=== PATIENT | female | born 1965 ===

== ENCOUNTER 2017-07-08 15:21 | Inpatient (IN) | payer OTHER, MEDICARE ==
[2017-07-08] MEDS ORDERED: Sodium Chloride 0.9% 1,000 ML IV ONE ×5 (15:30→18:14)
[2017-07-08] MEDS ORDERED: Sodium Chloride 0.9% 10 ML Syringe FLUSH PRN ×2 (15:30→15:38)
[2017-07-08] MEDS ORDERED: Ondansetron 4 MG/2 ML SDV IVPUSH ONE (15:38)
--- NOTE | 2017-07-08 15:49 | EDM.PDOC ---
<Kristie Lai - Last Filed: 07/09/17 02:52> ED HPI GENERAL MEDICAL PROBLEM - General Chief Complaint: Diabetic Complaint Stated Complaint: [facility] Time Seen by Provider: 07/08/17 15:29 Source of Information: Reports: Patient, EMS, Significant Other History Limitations: Reports: No Limitations - History of Present Illness INITIAL COMMENTS - FREE TEXT/NARRATIVE: 51-year-old female arrives via [place] [facility] service for evaluation and treatment of hyperglycemia. Patient is visiting [place] from [place]. She was in [facility] and April in [place]. Reportedly she has been taking her medications as prescribed. She started new diet about 5 days ago, she is on a "ketotic" diet. States that this is the only recent change. She does not note any fevers, cough etc. She is currently complaining of abdominal pain in epigastric area, nausea and vomiting. She is also complaining of being dry feeling dehydrated. She had 10 units of regular insulin around 11 AM. Per her significant other's report her blood sugar was around 396. EMS report shows a blood sugar of 430. Patient has been a diabetic for the last 15 years. primary care provider is in [place]. Upper Abdomen Pain Score (Numeric/FACES): 5 - Related Data Allergies Allergy/AdvReac Type Severity Reaction Status Date / Time No Known Allergies Allergy Verified 07/08/17 15:27 Home Meds: Home Meds Dapagliflozin Propanediol [Farxiga] 10 mg PO QAM 07/08/17 [History] Insulin Aspart [NovoLOG] 0 unit SQ WITHMEALSANDBED 07/08/17 [History] Insulin Glargine,Hum.Rec.Anlog [Toujeo Solostar] 30 unit SQ DAILY 07/08/17 [ History] Lisinopril 10 mg PO QAM 07/08/17 [History] Saxagliptin HCl/Metformin HCl [Kombiglyze XR 2.5-1,000 MG] 1 each PO QAM [History] atorvaSTATin [Lipitor] 20 mg PO QAM 07/08/17 [History] Past Medical History [employer] History: Reports: Musculoskeletal History: Reports: Other (See Below) Other Musculoskeletal History: broken leg in past Neurological History: Reports: Neuropathy, Diabetic Endocrine/Metabolic History: Reports: Diabetes, Type I - Past Surgical History Female Surgical History: Reports: Hysterectomy Social & Family History - Tobacco Use Smoking Status *Q: Current Every Day Smoker Years of Tobacco use: 15 Packs/Tins Daily: 0.5 - Caffeine Use Caffeine Use: Reports: Coffee - Recreational Drug Use Recreational Drug Use: No ED ROS GENERAL - Review of Systems Review Of Systems: See Below Constitutional: Denies: Fever Respiratory: Denies: Cough Endocrine: Reports: High Glucose, Polydypsia GI/Abdominal: Reports: Abdominal Pain, Nausea, Vomiting ED EXAM GENERAL NO PERIP PULSE - Physical Exam Exam: See Below Exam Limited By: No Limitations General Appearance: WD/WN, Lethargic, Moderate Distress Eye Exam: Bilateral Eye: Normal Inspection Ears: Normal External Exam Nose: Normal Inspection Throat/Mouth: Normal Oropharynx, Normal Voice, No Airway Compromise, Other (dry mucus membranes) Respiratory/Chest: No Respiratory Distress, Lungs Clear, Normal Breath Sounds Cardiovascular: Normal Peripheral Pulses, No Murmur, Tachycardia GI/Abdominal: Normal Bowel Sounds, Tender (epigastric area ). No: Distended, Guarding Neurological: Alert, Oriented, Normal Cognition Psychiatric: Normal Affect, Normal Mood Skin Exam: Warm, Normal Color, Diaphoretic Course - Vital Signs Last Recorded V/S: Last Vital Signs Temp 37.0 C 07/10/17 16:00 Pulse 96 07/10/17 04:00 Resp 16 07/10/17 16:00 BP 113/69 07/10/17 16:00 Pulse Ox 100 07/10/17 16:00 - Orders/Labs/Meds Orders: Medication Orders Acetaminophen (Tylenol) 650 mg PO Q6H PRN PRN Reason: Pain/Fever Last Admin: 07/09/17 17:47 Dose: 650 mg Famotidine (Pepcid) 20 mg IVPUSH BID [facility] Last Admin: 07/10/17 08:10 Dose: 20 mg Admin: 07/09/17 20:25 Dose: 20 mg Admin: 07/09/17 11:23 Dose: 20 mg Hydralazine HCl (Apresoline) 20 mg IVPUSH Q6H PRN PRN Reason: Hypertension Potassium Chloride 10 meq/ (Premix) 100 mls @ 100 mls/hr IV ASDIRECTED [facility] Last Infusion: 07/10/17 11:58 Dose: 75 mls/hr Admin: 07/10/17 11:47 Dose: 100 mls/hr Infusion: 07/08/17 18:25 Dose: 100 mls/hr Admin: 07/08/17 17:25 Dose: 100 mls/hr Azithromycin 500 mg/ Sodium (Chloride) 250 mls @ 250 mls/hr IV Q24H RAMIRO Last Admin: 07/10/17 18:14 Dose: 250 mls/hr Infusion: 07/09/17 19:50 Dose: 250 mls/hr Admin: 07/09/17 18:50 Dose: 250 mls/hr Infusion: 07/08/17 21:20 Dose: 250 mls/hr Admin: 07/08/17 20:20 Dose: 250 mls/hr Insulin Human Regular 100 unit (/ Sodium Chloride) 100 mls @ 2.5 mls/hr IV TITRATE RAMIRO; 2.5 UNIT/HR PRN Reason: Protocol Last Titration: 07/10/17 18:09 Dose: 0 unit/hr, 0 mls/hr Titration: 07/10/17 12:03 Dose: 2.5 unit/hr, 2.5 mls/hr Titration: 07/10/17 10:14 Dose: 3 unit/hr, 3 mls/hr Titration: 07/10/17 08:18 Dose: 2.5 unit/hr, 2.5 mls/hr Titration: 07/10/17 06:44 Dose: 1.5 unit/hr, 1.5 mls/hr Titration: 07/10/17 05:53 Dose: 2 unit/hr, 2 mls/hr Titration: 07/10/17 04:01 Dose: 1.5 unit/hr, 1.5 mls/hr Titration: 07/10/17 00:57 Dose: 2 unit/hr, 2 mls/hr Titration: 07/10/17 00:14 Dose: 3 unit/hr, 3 mls/hr Admin: 07/09/17 19:04 Dose: 2 unit/hr, 2 mls/hr Titration: 07/09/17 19:04 Dose: 2 unit/hr, 2 mls/hr Titration: 07/09/17 13:17 Dose: 2 unit/hr, 2 mls/hr Titration: 07/09/17 12:11 Dose: 1.5 unit/hr, 1.5 mls/hr Titration: 07/09/17 08:16 Dose: 2 unit/hr, 2 mls/hr Titration: 07/09/17 06:58 Dose: 2.5 unit/hr, 2.5 mls/hr Titration: 07/09/17 06:27 Dose: 3 unit/hr, 3 mls/hr Titration: 07/09/17 03:09 Dose: 2.5 unit/hr, 2.5 mls/hr Titration: 07/09/17 00:03 Dose: 3 unit/hr, 3 mls/hr Titration: 07/08/17 23:35 Dose: 2.5 unit/hr, 2.5 mls/hr Titration: 07/08/17 23:31 Dose: 3 unit/hr, 3 mls/hr Admin: 07/08/17 22:38 Dose: 2.5 unit/hr, 2.5 mls/hr Potassium Chloride 20 meq/ (Dextrose/Water) 1,010 mls @ 150 mls/hr IV Q7H [facility] Last Infusion: 07/10/17 18:09 Dose: 0 mls/hr Admin: 07/10/17 14:59 Dose: 150 mls/hr Infusion: 07/10/17 14:51 Dose: 150 mls/hr Admin: 07/10/17 08:07 Dose: 150 mls/hr Infusion: 07/10/17 07:56 Dose: 150 mls/hr Admin: 07/10/17 01:12 Dose: 150 mls/hr Infusion: 07/10/17 01:12 Dose: 150 mls/hr Admin: 07/09/17 19:06 Dose: 150 mls/hr Ceftriaxone Sodium 2 gm/ (Sodium Chloride) 100 mls @ 200 mls/hr IV Q24H [facility] Insulin Aspart (Novolog) 0 unit SUBCUT QIDACANDBED RAMIRO PRN Reason: Protocol Last Admin: 07/10/17 18:06 Dose: 6 units Ondansetron HCl (Zofran) 4 mg IVPUSH Q8H PRN PRN Reason: Nausea/Vomiting Last Admin: 07/09/17 05:39 Dose: 4 mg Admin: 07/08/17 20:55 Dose: 4 mg Potassium Chloride (Klor-Con M20) 40 meq PO BID [facility] Stop: 07/11/17 09:01 Last Admin: 07/10/17 08:10 Dose: Not Given Admin: 07/09/17 17:48 Dose: 40 meq Scopolamine (Scopolamine) 1 each TRDERM Q72H RAMIRO Last Admin: 07/09/17 11:21 Dose: 1 each Sodium Chloride (Saline Flush) 10 ml FLUSH ASDIRECTED PRN PRN Reason: Keep Vein Open Last Admin: 07/08/17 16:12 Dose: 10 ml Sodium Chloride (Saline Flush) 10 ml FLUSH ASDIRECTED PRN PRN Reason: Keep Vein Open Last Admin: 07/08/17 16:13 Dose: 10 ml Labs: Laboratory Tests 07/08/17 07/08/17 07/08/17 Range/Units 15:30 15:30 15:30 WBC 29.95 H (3.98-10.04) K/mm3 RBC 4.28 (3.98-5.22) M/mm3 Hgb 12.4 (11.2-15.7) gm/L Hct 39.1 (34.1-44.9) % MCV 91.4 (79.4-94.8) fl MCH 29.0 (25.6-32.2) pg MCHC 31.7 L (32.2-35.5) g/dl RDW Std Deviation 42.9 (36.4-46.3) fL Plt Count 450 H (182-369) K/mm3 MPV 10.2 (9.4-12.3) fl Neutrophils % (Manual) 87 H (40-60) % Band Neutrophils % 0 (0-10) % Lymphocytes % (Manual) 10 L (20-40) % Atypical Lymphs % 0 % Monocytes % (Manual) 3 (2-10) % Eosinophils % (Manual) 0 L (0.7-5.8) % Basophils % (Manual) 0 L (0.1-1.2) Toxic Granulation 1+ slight Platelet Estimate Increased Plt Morphology Comment Normal Poikilocytosis 1+ slight Pavithra Cells 1+ slight RBC Morph Comment Not Reportable Puncture Site ABG pH (7.35-7.45) ABG pCO2 (35.0-45.0) mmHg ABG pO2 (80.0-100.0) mmHg ABG HCO3 (22.0-26.0) meq/L ABG O2 Saturation (96.0-97.0) % ABG Base Excess (-2-2.0) Rubin Test O2 Delivery Device FiO2 (21.00-100.00) % Sodium 142 (136-145) mEq/L Potassium 4.9 (3.5-5.1) mEq/L Chloride 98 (98-107) mEq/L Carbon Dioxide 5 L* (21-32) mEq/L Anion Gap 43.9 H (5-15) BUN 37 H (7-18) mg/dL Creatinine 1.9 H (0.55-1.02) mg/dL Est Cr Clr Drug Dosing 34.83 mL/min Estimated GFR (MDRD) 28 (>60) mL/min BUN/Creatinine Ratio 19.5 H (14-18) Glucose 462 H (74-106) mg/dL Hemoglobin A1c (4.50-6.20) % Serum Osmolality 346 H (280-300) mosm/kg Lactic Acid 2.8 H (0.4-2.0) mmol/L Calcium 8.9 (8.5-10.1) mg/dL Phosphorus 9.6 H (2.6-4.7) mg/dL Magnesium 2.4 (1.8-2.4) mg/dl Total Bilirubin 0.5 (0.2-1.0) mg/dL AST 36 (15-37) U/L ALT 77 H (14-59) U/L Alkaline Phosphatase 102 (46-116) U/L C-Reactive Protein (<1.0) mg/dL Total Protein 7.5 (6.4-8.2) g/dl Albumin 4.0 (3.4-5.0) g/dl Globulin 3.5 gm/dL Albumin/Globulin Ratio 1.1 (1-2) Lipase (73-393) U/L Urine Color (Yellow) Urine Appearance (Clear) Urine pH (5.0-8.0) Ur Specific [place] (1.005-1.030) Urine Protein (Negative) Urine Glucose (UA) (Negative) Urine Ketones (Negative) Urine Occult Blood (Negative) Urine Nitrite (Negative) Urine Bilirubin (Negative) Urine Urobilinogen (0.2-1.0) Ur Leukocyte Esterase (Negative) Urine RBC (0-5) /hpf Urine WBC (0-5) /hpf Ur Epithelial Cells (0-5) /hpf Amorphous Sediment (NOT SEEN) /hpf Urine Bacteria (FEW) /hpf Urine Mucus (FEW) /hpf Urine Opiates Screen (NEGATIVE) Ur Buprenorphine Scrn (NEGATIVE) Ur Oxycodone Screen (NEGATIVE) Urine Methadone Screen (NEGATIVE) Ur Propoxyphene Screen (NEGATIVE) Ur Barbiturates Screen (NEGATIVE) Ur Tricyclics Screen (NEGATIVE) Ur Phencyclidine Scrn (NEGATIVE) Ur Amphetamine Screen (NEGATIVE) U Methamphetamines Scrn (NEGATIVE) U Benzodiazepines Scrn (NEGATIVE) U Cocaine Metab Screen (NEGATIVE) U Marijuana (THC) Screen (NEGATIVE) Ketones (0.0-0.3) mM 07/08/17 07/08/17 07/08/17 Range/Units 15:30 15:30 15:30 WBC (3.98-10.04) K/mm3 RBC (3.98-5.22) M/mm3 Hgb (11.2-15.7) gm/L Hct (34.1-44.9) % MCV (79.4-94.8) fl MCH (25.6-32.2) pg MCHC (32.2-35.5) g/dl RDW Std Deviation (36.4-46.3) fL Plt Count (182-369) K/mm3 MPV (9.4-12.3) fl Neutrophils % (Manual) (40-60) % Band Neutrophils % (0-10) % Lymphocytes % (Manual) (20-40) % Atypical Lymphs % % Monocytes % (Manual) (2-10) % Eosinophils % (Manual) (0.7-5.8) % Basophils % (Manual) (0.1-1.2) Toxic Granulation Platelet Estimate Plt Morphology Comment Poikilocytosis Pavithra Cells RBC Morph Comment Puncture Site ABG pH (7.35-7.45) ABG pCO2 (35.0-45.0) mmHg ABG pO2 (80.0-100.0) mmHg ABG HCO3 (22.0-26.0) meq/L ABG O2 Saturation (96.0-97.0) % ABG Base Excess (-2-2.0) Rubin Test O2 Delivery Device FiO2 (21.00-100.00) % Sodium (136-145) mEq/L Potassium (3.5-5.1) mEq/L Chloride (98-107) mEq/L Carbon Dioxide (21-32) mEq/L Anion Gap (5-15) BUN (7-18) mg/dL Creatinine (0.55-1.02) mg/dL Est Cr Clr Drug Dosing mL/min Estimated GFR (MDRD) (>60) mL/min BUN/Creatinine Ratio (14-18) Glucose (74-106) mg/dL Hemoglobin A1c (4.50-6.20) % Serum Osmolality (280-300) mosm/kg Lactic Acid (0.4-2.0) mmol/L Calcium (8.5-10.1) mg/dL Phosphorus (2.6-4.7) mg/dL Magnesium (1.8-2.4) mg/dl Total Bilirubin (0.2-1.0) mg/dL AST (15-37) U/L ALT (14-59) U/L Alkaline Phosphatase (46-116) U/L C-Reactive Protein 0.2 (<1.0) mg/dL Total Protein (6.4-8.2) g/dl Albumin (3.4-5.0) g/dl Globulin gm/dL Albumin/Globulin Ratio (1-2) Lipase 1355 H (73-393) U/L Urine Color (Yellow) Urine Appearance (Clear) Urine pH (5.0-8.0) Ur Specific [place] (1.005-1.030) Urine Protein (Negative) Urine Glucose (UA) (Negative) Urine Ketones (Negative) Urine Occult Blood (Negative) Urine Nitrite (Negative) Urine Bilirubin (Negative) Urine Urobilinogen (0.2-1.0) Ur Leukocyte Esterase (Negative) Urine RBC (0-5) /hpf Urine WBC (0-5) /hpf Ur Epithelial Cells (0-5) /hpf Amorphous Sediment (NOT SEEN) /hpf Urine Bacteria (FEW) /hpf Urine Mucus (FEW) /hpf Urine Opiates Screen (NEGATIVE) Ur Buprenorphine Scrn (NEGATIVE) Ur Oxycodone Screen (NEGATIVE) Urine Methadone Screen (NEGATIVE) Ur Propoxyphene Screen (NEGATIVE) Ur Barbiturates Screen (NEGATIVE) Ur Tricyclics Screen (NEGATIVE) Ur Phencyclidine Scrn (NEGATIVE) Ur Amphetamine Screen (NEGATIVE) U Methamphetamines Scrn (NEGATIVE) U Benzodiazepines Scrn (NEGATIVE) U Cocaine Metab Screen (NEGATIVE) U Marijuana (THC) Screen (NEGATIVE) Ketones 15.67 (0.0-0.3) mM 07/08/17 07/08/17 07/08/17 Range/Units 15:34 15:50 16:50 WBC (3.98-10.04) K/mm3 RBC (3.98-5.22) M/mm3 Hgb (11.2-15.7) gm/L Hct (34.1-44.9) % MCV (79.4-94.8) fl MCH (25.6-32.2) pg MCHC (32.2-35.5) g/dl RDW Std Deviation (36.4-46.3) fL Plt Count (182-369) K/mm3 MPV (9.4-12.3) fl Neutrophils % (Manual) (40-60) % Band Neutrophils % (0-10) % Lymphocytes % (Manual) (20-40) % Atypical Lymphs % % Monocytes % (Manual) (2-10) % Eosinophils % (Manual) (0.7-5.8) % Basophils % (Manual) (0.1-1.2) Toxic Granulation Platelet Estimate Plt Morphology Comment Poikilocytosis Ord Cells RBC Morph Comment Puncture Site Rt radial ABG pH 7.02 L* (7.35-7.45) ABG pCO2 13.5 L* (35.0-45.0) mmHg ABG pO2 127.0 H (80.0-100.0) mmHg ABG HCO3 3.3 L (22.0-26.0) meq/L ABG O2 Saturation 98.4 H (96.0-97.0) % ABG Base Excess -27.2 L (-2-2.0) Rubin Test Positive O2 Delivery Device Room air FiO2 0.00 L (21.00-100.00) % Sodium (136-145) mEq/L Potassium (3.5-5.1) mEq/L Chloride (98-107) mEq/L Carbon Dioxide (21-32) mEq/L Anion Gap (5-15) BUN (7-18) mg/dL Creatinine (0.55-1.02) mg/dL Est Cr Clr Drug Dosing mL/min Estimated GFR (MDRD) (>60) mL/min BUN/Creatinine Ratio (14-18) Glucose (74-106) mg/dL Hemoglobin A1c 8.70 H (4.50-6.20) % Serum Osmolality (280-300) mosm/kg Lactic Acid (0.4-2.0) mmol/L Calcium (8.5-10.1) mg/dL Phosphorus (2.6-4.7) mg/dL Magnesium (1.8-2.4) mg/dl Total Bilirubin (0.2-1.0) mg/dL AST (15-37) U/L ALT (14-59) U/L Alkaline Phosphatase (46-116) U/L C-Reactive Protein (<1.0) mg/dL Total Protein (6.4-8.2) g/dl Albumin (3.4-5.0) g/dl Globulin gm/dL Albumin/Globulin Ratio (1-2) Lipase (73-393) U/L Urine Color Yellow (Yellow) Urine Appearance Clear (Clear) Urine pH 5.5 (5.0-8.0) Ur Specific [place] > or = 1.030 (1.005-1.030) Urine Protein 2+ H (Negative) Urine Glucose (UA) 2+ H (Negative) Urine Ketones 3+ H (Negative) Urine Occult Blood Trace-lysed H (Negative) Urine Nitrite Negative (Negative) Urine Bilirubin 1+ H (Negative) Urine Urobilinogen 0.2 (0.2-1.0) Ur Leukocyte Esterase Negative (Negative) Urine RBC 0-5 (0-5) /hpf Urine WBC 0-5 (0-5) /hpf Ur Epithelial Cells 0-5 (0-5) /hpf Amorphous Sediment Moderate H (NOT SEEN) /hpf Urine Bacteria Moderate H (FEW) /hpf Urine Mucus Few (FEW) /hpf Urine Opiates Screen (NEGATIVE) Ur Buprenorphine Scrn (NEGATIVE) Ur Oxycodone Screen (NEGATIVE) Urine Methadone Screen (NEGATIVE) Ur Propoxyphene Screen (NEGATIVE) Ur Barbiturates Screen (NEGATIVE) Ur Tricyclics Screen (NEGATIVE) Ur Phencyclidine Scrn (NEGATIVE) Ur Amphetamine Screen (NEGATIVE) U Methamphetamines Scrn (NEGATIVE) U Benzodiazepines Scrn (NEGATIVE) U Cocaine Metab Screen (NEGATIVE) U Marijuana (THC) Screen (NEGATIVE) Ketones (0.0-0.3) mM 07/08/17 Range/Units 16:58 WBC (3.98-10.04) K/mm3 RBC (3.98-5.22) M/mm3 Hgb (11.2-15.7) gm/L Hct (34.1-44.9) % MCV (79.4-94.8) fl MCH (25.6-32.2) pg MCHC (32.2-35.5) g/dl RDW Std Deviation (36.4-46.3) fL Plt Count (182-369) K/mm3 MPV (9.4-12.3) fl Neutrophils % (Manual) (40-60) % Band Neutrophils % (0-10) % Lymphocytes % (Manual) (20-40) % Atypical Lymphs % % Monocytes % (Manual) (2-10) % Eosinophils % (Manual) (0.7-5.8) % Basophils % (Manual) (0.1-1.2) Toxic Granulation Platelet Estimate Plt Morphology Comment Poikilocytosis Ord Cells RBC Morph Comment Puncture Site ABG pH (7.35-7.45) ABG pCO2 (35.0-45.0) mmHg ABG pO2 (80.0-100.0) mmHg ABG HCO3 (22.0-26.0) meq/L ABG O2 Saturation (96.0-97.0) % ABG Base Excess (-2-2.0) Rubin Test O2 Delivery Device FiO2 (21.00-100.00) % Sodium (136-145) mEq/L Potassium (3.5-5.1) mEq/L Chloride (98-107) mEq/L Carbon Dioxide (21-32) mEq/L Anion Gap (5-15) BUN (7-18) mg/dL Creatinine (0.55-1.02) mg/dL Est Cr Clr Drug Dosing mL/min Estimated GFR (MDRD) (>60) mL/min BUN/Creatinine Ratio (14-18) Glucose (74-106) mg/dL Hemoglobin A1c (4.50-6.20) % Serum Osmolality (280-300) mosm/kg Lactic Acid (0.4-2.0) mmol/L Calcium (8.5-10.1) mg/dL Phosphorus (2.6-4.7) mg/dL Magnesium (1.8-2.4) mg/dl Total Bilirubin (0.2-1.0) mg/dL AST (15-37) U/L ALT (14-59) U/L Alkaline Phosphatase (46-116) U/L C-Reactive Protein (<1.0) mg/dL Total Protein (6.4-8.2) g/dl Albumin (3.4-5.0) g/dl Globulin gm/dL Albumin/Globulin Ratio (1-2) Lipase (73-393) U/L Urine Color (Yellow) Urine Appearance (Clear) Urine pH (5.0-8.0) Ur Specific [place] (1.005-1.030) Urine Protein (Negative) Urine Glucose (UA) (Negative) Urine Ketones (Negative) Urine Occult Blood (Negative) Urine Nitrite (Negative) Urine Bilirubin (Negative) Urine Urobilinogen (0.2-1.0) Ur Leukocyte Esterase (Negative) Urine RBC (0-5) /hpf Urine WBC (0-5) /hpf Ur Epithelial Cells (0-5) /hpf Amorphous Sediment (NOT SEEN) /hpf Urine Bacteria (FEW) /hpf Urine Mucus (FEW) /hpf Urine Opiates Screen Negative (NEGATIVE) Ur Buprenorphine Scrn Negative (NEGATIVE) Ur Oxycodone Screen Negative (NEGATIVE) Urine Methadone Screen Negative (NEGATIVE) Ur Propoxyphene Screen Negative (NEGATIVE) Ur Barbiturates Screen Negative (NEGATIVE) Ur Tricyclics Screen Negative (NEGATIVE) Ur Phencyclidine Scrn Negative (NEGATIVE) Ur Amphetamine Screen Negative (NEGATIVE) U Methamphetamines Scrn Negative (NEGATIVE) U Benzodiazepines Scrn Negative (NEGATIVE) U Cocaine Metab Screen Negative (NEGATIVE) U Marijuana (THC) Screen Negative (NEGATIVE) Ketones (0.0-0.3) mM Meds: Medications Generic Name Dose Route Start Last Admin Trade Name Freq PRN Reason Stop Dose Admin Acetaminophen 650 mg 07/09/17 17:20 07/09/17 17:47 Tylenol PO 650 mg Q6H PRN Administration Pain/Fever Famotidine 20 mg 07/09/17 11:00 07/10/17 08:10 Pepcid IVPUSH 20 mg BID RAMIRO Administration Hydralazine HCl 20 mg 07/08/17 19:49 Apresoline IVPUSH Q6H PRN Hypertension Potassium Chloride 10 meq/ 100 mls @ 100 mls/hr 07/08/17 17:00 07/10/17 11:58 Premix IV 75 mls/hr ASDIRECTED RAMIRO Infusion Azithromycin 500 mg/ Sodium 250 mls @ 250 mls/hr 07/08/17 19:00 07/10/17 18: 14 Chloride IV 250 mls/hr Q24H RAMIRO Administration Insulin Human Regular 100 unit 100 mls @ 2.5 mls/hr 07/08/17 22:30 07/10/17 18:09 / Sodium Chloride IV 0 unit/hr TITRATE RAMIRO 0 mls/hr Protocol Titration 2.5 UNIT/HR Potassium Chloride 20 meq/ 1,010 mls @ 150 mls/hr 07/09/17 19:00 07/10/17 18: 09 Dextrose/Water IV 0 mls/hr Q7H [facility]O Infusion Ceftriaxone Sodium 2 gm/ 100 mls @ 200 mls/hr 07/10/17 22:00 Sodium Chloride IV Q24H RAMIRO Insulin Aspart 0 unit 07/10/17 18:00 07/10/17 18:06 Novolog SUBCUT 6 units QIDACANDBED RAMIRO Administration Protocol Ondansetron HCl 4 mg 07/08/17 19:37 07/09/17 05:39 Zofran IVPUSH 4 mg Q8H PRN Administration Nausea/Vomiting Potassium Chloride 40 meq 07/09/17 18:00 07/10/17 08:10 Klor-Con M20 PO 07/11/17 09:01 Not Given BID RAMIRO Scopolamine 1 each 07/09/17 10:45 07/09/17 11:21 Scopolamine TRDERM 1 each Q72H RAMIRO Administration Sodium Chloride 10 ml 07/08/17 15:30 07/08/17 16:12 Saline Flush FLUSH 10 ml ASDIRECTED PRN Administration Keep Vein Open Sodium Chloride 10 ml 07/08/17 15:38 07/08/17 16:13 Saline Flush FLUSH 10 ml ASDIRECTED PRN Administration Keep Vein Open Discontinued Medications Generic Name Dose Route Start Last Admin Trade Name Freq PRN Reason Stop Dose Admin Sodium Chloride 1,000 mls @ 999 mls/hr 07/08/17 15:30 07/08/17 15:40 Normal Saline IV 07/08/17 16:30 999 mls/hr ONETIME ONE Administration Sodium Chloride 1,000 mls @ 999 mls/hr 07/08/17 15:36 07/08/17 16:12 Normal Saline IV 07/08/17 16:36 999 mls/hr ONETIME ONE Administration Sodium Chloride 1,000 mls @ 999 mls/hr 07/08/17 16:07 07/08/17 16:12 Normal Saline IV 07/08/17 17:07 999 mls/hr ONETIME ONE Administration Insulin Human Regular 100 unit 100 mls @ 3 mls/hr 07/08/17 17:00 07/08/17 17: 25 / Sodium Chloride IV 3 unit/hr TITRATE RAMIRO 3 mls/hr Protocol Administration 3 UNIT/HR Sodium Chloride 1,000 mls @ 999 mls/hr 07/08/17 16:59 07/08/17 17:04 Normal Saline IV 07/08/17 17:59 999 mls/hr ONETIME ONE Administration Potassium Chloride Confirm 07/08/17 17:15 07/08/17 17:28 Kcl 10 Meq In Water 100 Ml Administered 07/08/17 17:16 Not Given Dose 100 mls @ as directed .ROUTE .STK-MED ONE Sodium Chloride 1,000 mls @ 999 mls/hr 07/08/17 18:14 07/08/17 18:17 Normal Saline IV 07/08/17 19:14 999 mls/hr ONETIME ONE Administration Sodium Chloride 1,000 mls @ 999 mls/hr 07/08/17 19:45 07/08/17 20:25 Normal Saline IV 07/08/17 21:44 999 mls/hr Q1H RAMIRO Administration Ceftriaxone Sodium 2 gm/ 100 mls @ 200 mls/hr 07/08/17 22:00 07/08/17 23:07 Sodium Chloride IV Not Given Q24H RAMIRO Insulin Human Regular 100 unit 100 mls @ 217.31 mls/hr 07/08/17 20:18 20:53 / Sodium Chloride IV 3 units/kg/hr TITRATE RAMIRO 217.31 mls/hr Protocol Administration 3 UNITS/KG/HR Ceftriaxone Sodium 1 gm/ 100 mls @ 200 mls/hr 07/08/17 23:00 07/09/17 22:23 Sodium Chloride IV 200 mls/hr Q24H RAMIRO Administration Ceftriaxone Sodium 1 gm/ 100 mls @ 200 mls/hr 07/08/17 23:15 07/09/17 22:50 Sodium Chloride IV 200 mls/hr Q24H RAMIRO Administration Dextrose/Sodium Chloride 1,000 mls @ 150 mls/hr 07/08/17 23:15 07/09/17 06:26 Dextrose 5%-Normal Saline IV 150 mls/hr ASDIRECTED RAMIRO Administration Dextrose/Water Confirm 07/08/17 23:06 07/08/17 23:30 Dextrose 5% In Water Administered 07/08/17 23:07 Not Given Dose 1,000 mls @ as directed .ROUTE .STK-MED ONE Dextrose/Sodium Chloride 1,000 mls @ 150 mls/hr 07/09/17 11:00 07/09/17 13:21 Dextrose 5%-1/2 Ns IV 150 mls/hr ASDIRECTED RAMIRO Administration Potassium Chloride 20 meq/ 1,010 mls @ 150 mls/hr 07/09/17 17:30 Dextrose/Water IV ASDIRECTED RAMIRO Sodium Chloride Confirm 07/09/17 18:52 07/09/17 19:41 Normal Saline Administered 07/09/17 18:53 Not Given Dose 100 mls @ as directed .ROUTE .STK-MED ONE Potassium Chloride 10 meq/ 100 mls @ 100 mls/hr 07/10/17 11:15 07/10/17 15:49 Premix IV 07/10/17 15:14 75 mls/hr Q1H RAMIRO Administration Magnesium Sulfate 2 gm/ Premix 50 mls @ 25 mls/hr 07/10/17 11:12 07/10/17 11: 54 IV 07/10/17 13:11 25 mls/hr ONETIME ONE Administration Ondansetron HCl 4 mg 07/08/17 15:38 07/08/17 16:13 Zofran IVPUSH 07/08/17 15:39 4 mg ONETIME ONE Administration - Radiology Interpretation Free Text/Narrative:: chest xray reviewed by myself and Dr. Carranza shows no acute intrathoracic process. Formal radiology read pending - Re-Assessments/Exams Free Text/Narrative Re-Assessment/Exam: 07/08/17 18:21 Clinically the patient has DKA. She was started on fluids right away. 2 IVS established right away. She was given 3 liters initially. Blood sugar rechecked and was still greater than 400. Patient required admission for DKA. Case was discussed with Dr. Lang, hospitalist [employer] manager. She has come to the ER and seen the patient. Decision to admit occurred during inital assessment. Significant other was made aware of intent to admit. Dr. Lang notified about patient around 16:30 Patient is on her 5th liter of fluid. She has an insulin drip going around 3 units per hour. She has received 10meq potassium IV and 4mg IV zofran. Dr. Lang has seen the patient in the ER and agrees to the admission. She will be admitted to the ICU. Departure - Departure Time of Disposition: 18:40 Disposition: Admitted As Inpatient 68 Condition: Serious Clinical Impression: Hyperglycemia, Diabetic ketoacidosis - Discharge Information <Bobby Carranza - Last Filed: 07/10/17 19:11> Course - Re-Assessments/Exams Free Text/Narrative Re-Assessment/Exam: 07/08/17 17:27 Dr. Lang has seen the patient and identified that she is acutely shivering at this point time. This may be due to fourth liter of IV fluids which may be causing her to cool down. However with a white count of 30, 000 is felt prudent to do a chest x-ray a CRP and blood cultures 2. These tests with us ordered.
[2017-07-08] MEDS ORDERED: Potassium Chloride 100 ML ONE (17:15)
[2017-07-08] MEDS: Potassium Chloride 10 MEQ in Premix Bag 1 BAG IV SCH (17:25)
--- NOTE | 2017-07-08 19:21 | PCM.HP ---
H&P History of Present Illness - General Date of Service: 07/08/17 Source of Information: Provider History Limitations: Reports: No Limitations - History of Present Illness Initial Comments - Free Text/Narative: 51 year old female with type 1 diabetes mellitus complained of not feeling well. She had abdominal discomfort associated with nausea and vomiting. A recent change in diet for weight loss was started 5 days [employer]. She denies any flu like symptoms or sick contact. Lab work revealed AG 43.9. The last admission for DKA apparently happened in April 2017. She has relocated to [place] from [place] as a result of her spouse's employer. There has been no change in her DM medications. She states that she is complaint with her DM medications. An ICU admission has been requested to continue the DKA protocol started in the ED. She has received 6 liters of fluid prior to admission. Onset of Symptoms: Reports: Gradual Symptom Onset Date: 07/08/17 Duration of Symptoms: Reports: Day(s): Location: Reports: Generalized Quality: Reports: Same as Previous Episode Severity: Moderate Improves with: Reports: Medication Worsens with: Reports: None Associated Symptoms: Reports: Fever/Chills, Loss of Appetite, Nausea/Vomiting, Shortness of Breath, Weakness Upper Abdomen Pain Score (Numeric/FACES): 5 - Related Data Allergies/Adverse Reactions: Allergies Allergy/AdvReac Type Severity Reaction Status Date / Time No Known Allergies Allergy Verified 07/08/17 15:27 Home Medications: Home Meds Dapagliflozin Propanediol [Farxiga] 10 mg PO QAM 07/08/17 [History] Insulin Aspart [NovoLOG] 0 unit SQ WITHMEALSANDBED 07/08/17 [History] Insulin Glargine,Hum.Rec.Anlog [Toujeo Solostar] 30 unit SQ DAILY 07/08/17 [ History] Lisinopril 10 mg PO QAM 07/08/17 [History] Saxagliptin HCl/Metformin HCl [Kombiglyze XR 2.5-1,000 MG] 1 each PO QAM [History] atorvaSTATin [Lipitor] 20 mg PO QAM 07/08/17 [History] Past Medical History [employer] History: Reports: Musculoskeletal History: Reports: Other (See Below) Other Musculoskeletal History: broken leg in past Neurological History: Reports: Neuropathy, Diabetic Endocrine/Metabolic History: Reports: Diabetes, Type I - Past Surgical History Female Surgical History: Reports: Hysterectomy Social & Family History - Tobacco Use Smoking Status *Q: Current Every Day Smoker Years of Tobacco use: 15 Packs/Tins Daily: 0.5 - Caffeine Use Caffeine Use: Reports: Coffee - Recreational Drug Use Recreational Drug Use: No H&P Review of Systems - Review of Systems: Review Of Systems: See Below General: Reports: Malaise, Weakness HEENT: Reports: No Symptoms Pulmonary: Reports: No Symptoms Cardiovascular: Reports: No Symptoms Gastrointestinal: Reports: Abdominal Pain, Decreased Appetite, Nausea, Vomiting Genitourinary: Reports: No Symptoms Musculoskeletal: Reports: No Symptoms Skin: Reports: No Symptoms Psychiatric: Reports: No Symptoms Neurological: Reports: No Symptoms Hematologic/Lymphatic: Reports: No Symptoms Immunologic: Reports: No Symptoms Exam - Exam Exam: See Below - Vital Signs Vital Signs: Last Vital Signs Temp 36.4 C 07/08/17 19:16 Pulse 114 H 07/08/17 15:27 Resp 26 H 07/08/17 18:54 BP 185/141 H 07/08/17 18:54 Pulse Ox 100 07/08/17 18:54 Weight: 72.439 kg - Exam Quality Assessment: Supplemental Oxygen General: Lethargic HEENT: Conjunctiva Clear, Nares Patent, Normal Nasal Septum, Pupils Equal, Pupils Reactive, PERRLA Neck: Trachea Midline Lungs: Normal Respiratory Effort, Decreased Breath Sounds Cardiovascular: Regular Rate, Tachycardia GI/Abdominal Exam: Normal Bowel Sounds, Soft, Non-Tender, No Organomegaly, No Distention (Female) Exam: Deferred Rectal (Female) Exam: Deferred Back Exam: Normal Inspection Extremities: Normal Inspection, Normal Range of Motion, Slow Capillary Refill Skin: Warm Neurological: Cranial Nerves Intact Neuro Extensive - Motor, Sensory, Reflexes: CN II-XII Intact Psychiatric: Alert, Anxious - Patient Data Lab Results Last 24 hrs: Laboratory Results - last 24 hr 07/08/17 Range/Units 18:54 POC Glucose 315 H (70-105) mg/dL Result Diagrams: 07/08/17 15:30 07/10/17 16:22 *Q Meaningful Use (ADM) - VTE *Q VTE Criteria *Q: - Stroke *Q Stroke Criteria *Q: - AMI *Q AMI Criteria *Q: - Problem List (1) Tobacco dependence SNOMED Code(s): 47304689 ICD Code: F17.200 - NICOTINE DEPENDENCE, UNSPECIFIED, UNCOMPLICATED Status : Acute Current Visit: Yes (2) Hyperlipidemia due to type 1 diabetes mellitus SNOMED Code(s): 802191627120093 ICD Code: E10.69 - TYPE 1 DIABETES MELLITUS WITH OTHER SPECIFIED COMPLICATION ; E78.5 - HYPERLIPIDEMIA, UNSPECIFIED Status: Acute Current Visit: Yes (3) Acute renal failure SNOMED Code(s): 84416020 ICD Code: N17.9 - ACUTE KIDNEY FAILURE, UNSPECIFIED Status: Acute Current Visit: Yes (4) Leukocytosis, unspecified SNOMED Code(s): 648329140 ICD Code: D72.829 - ELEVATED WHITE BLOOD CELL COUNT, UNSPECIFIED Status: Acute Current Visit: Yes (5) Diabetic ketoacidosis SNOMED Code(s): 869878033 ICD Code: E13.10 - OTH DIABETES MELLITUS WITH KETOACIDOSIS WITHOUT COMA Status: Acute Current Visit: Yes Problem List Initiated/Reviewed/Updated: Yes Orders Last 24hrs: Active Orders 24 hr Category Date Time Status Cooling Warming Measures [RC] ASDIRECTED Care 07/08/17 19:18 Active BASIC METABOLIC PANEL,BMP [CHEM] Stat Lab 07/08/17 19:02 Ordered Medication Orders Potassium Chloride 10 meq/ (Premix) 100 mls @ 100 mls/hr IV ASDIRECTED RAMIRO Last Admin: 07/08/17 17:25 Dose: 100 mls/hr Insulin Human Regular 100 unit (/ Sodium Chloride) 100 mls @ 3 mls/hr IV TITRATE RAMIRO; 3 UNIT/HR PRN Reason: Protocol Last Admin: 07/08/17 17:25 Dose: 3 unit/hr, 3 mls/hr Sodium Chloride (Saline Flush) 10 ml FLUSH ASDIRECTED PRN PRN Reason: Keep Vein Open Last Admin: 07/08/17 16:12 Dose: 10 ml Sodium Chloride (Saline Flush) 10 ml FLUSH ASDIRECTED PRN PRN Reason: Keep Vein Open Last Admin: 07/08/17 16:13 Dose: 10 ml Assessment/Plan Comment:: Impression: DM type 1 with DKA Query infectious process Leukocytosis, unspecified Hyperlipidemia Tobacco dependence Plan: Infectious-->resp work up Droplet isolation, check Influenza PCR 2 liters wide open/ heated fluids/Barehugger DKA protocol Antiemetic as needed Habitrol scheduled DM educator Consult dietary for wgt loss Consult PT/OT/CM DVT/GI prophylaxis
[2017-07-08] MEDS: Sodium Chloride 0.9% 1,000 ML IV SCH ×2 (19:30→20:25)
[2017-07-08] MEDS ORDERED: hydrALAZINE 20 MG/ML SDV IVPUSH PRN (19:49)
[2017-07-08] MEDS: Azithromycin 500 MG in Sodium Chloride 0.9% 250 ML IV SCH (20:20)
[2017-07-08] MEDS: Ondansetron 4 MG/2 ML SDV IVPUSH PRN (20:55)
[2017-07-08] MEDS ORDERED: cefTRIAXone 2 GM in Sodium Chloride 0.9% 100 ML IV SCH (22:00)
[2017-07-08] MEDS ORDERED: Dextrose 5% in Water 1,000 ML ONE (23:06)
[2017-07-08] MEDS: cefTRIAXone 1 GM in Sodium Chloride 0.9% 100 ML IV SCH ×2 (23:24→23:55)
[2017-07-08] MEDS: Dextrose 5%-0.9% NaCl 1,000 ML IV SCH (23:30)
[2017-07-09] MEDS: Ondansetron 4 MG/2 ML SDV IVPUSH PRN (05:39)
[2017-07-09] MEDS: Dextrose 5%-0.9% NaCl 1,000 ML IV SCH (06:26)
[2017-07-09] MEDS ORDERED: Scopolamine 1 MG Transdermal Patch TRDERM SCH (10:45)
[2017-07-09] MEDS ORDERED: Dextrose 5%-0.45% NaCl 1,000 ML IV SCH (11:00)
[2017-07-09] MEDS: Famotidine 20 MG/2 ML SDV IVPUSH SCH ×2 (11:23→20:25)
--- NOTE | 2017-07-09 17:11 | PCM.PN ---
- General Info Date of Service: 07/09/17 Subjective Update: Complains of hunger, will try clear liquids and ice; denies sick exposure Functional Status: Reports: Ambulating, Urinating - Review of Systems General: Reports: Weakness, Appetite HEENT: Reports: No Symptoms Pulmonary: Reports: No Symptoms Cardiovascular: Reports: No Symptoms Gastrointestinal: Reports: Nausea (after KCl supplement) Genitourinary: Reports: No Symptoms Musculoskeletal: Reports: No Symptoms Skin: Reports: No Symptoms Neurological: Reports: No Symptoms Psychiatric: Reports: No Symptoms - Patient Data Vitals - Most Recent: Last Vital Signs Temp 37.1 C 07/09/17 16:00 Pulse 119 H 07/09/17 06:52 Resp 16 07/09/17 16:00 BP 103/54 L 07/09/17 16:00 Pulse Ox 99 07/09/17 16:00 Weight - Most Recent: 72.529 kg I&O - Last 24 Hours: Intake & Output 07/09/17 07/09/17 07/09/17 06:59 14:59 22:59 Intake Total 6989 2843 655 Output Total 3600 2700 Balance 3389 143 655 Lab Results Last 24 Hours: Laboratory Results - last 24 hr 07/08/17 07/08/17 07/08/17 Range/Units 18:54 19:27 20:08 Sodium 144 (136-145) mEq/L Potassium 5.0 (3.5-5.1) mEq/L Chloride 109 H (98-107) mEq/L Carbon Dioxide 7 L* (21-32) mEq/L Anion Gap 33.0 H (5-15) BUN 33 H (7-18) mg/dL Creatinine 1.5 H (0.55-1.02) mg/dL Est Cr Clr Drug Dosing 44.12 mL/min Estimated GFR (MDRD) 37 (>60) mL/min BUN/Creatinine Ratio 22.0 H (14-18) Glucose 338 H (74-106) mg/dL POC Glucose 315 H 281 H (70-105) mg/dL Hemoglobin A1c (4.50-6.20) % Lactic Acid (0.4-2.0) mmol/L Calcium 7.4 L (8.5-10.1) mg/dL Magnesium (1.8-2.4) mg/dl C-Reactive Protein (<1.0) mg/dL Triglycerides (<150) mg/dL Cholesterol (<200) mg/dL LDL Cholesterol Direct (<100) mg/dL HDL Cholesterol (40-59) mg/dL Ketones (0.0-0.3) mM Mycoplasma pneumon IgM (NEGATIVE) 07/08/17 07/08/17 07/08/17 Range/Units 20:52 22:06 23:19 Sodium (136-145) mEq/L Potassium (3.5-5.1) mEq/L Chloride (98-107) mEq/L Carbon Dioxide (21-32) mEq/L Anion Gap (5-15) BUN (7-18) mg/dL Creatinine (0.55-1.02) mg/dL Est Cr Clr Drug Dosing mL/min Estimated GFR (MDRD) (>60) mL/min BUN/Creatinine Ratio (14-18) Glucose (74-106) mg/dL POC Glucose 256 H 216 H 226 H (70-105) mg/dL Hemoglobin A1c (4.50-6.20) % Lactic Acid (0.4-2.0) mmol/L Calcium (8.5-10.1) mg/dL Magnesium (1.8-2.4) mg/dl C-Reactive Protein (<1.0) mg/dL Triglycerides (<150) mg/dL Cholesterol (<200) mg/dL LDL Cholesterol Direct (<100) mg/dL HDL Cholesterol (40-59) mg/dL Ketones (0.0-0.3) mM Mycoplasma pneumon IgM (NEGATIVE) 07/08/17 07/09/17 07/09/17 Range/Units 23:59 01:09 01:10 Sodium Cancelled (136-145) mEq/L Potassium Cancelled (3.5-5.1) mEq/L Chloride Cancelled (98-107) mEq/L Carbon Dioxide Cancelled (21-32) mEq/L Anion Gap Cancelled (5-15) BUN Cancelled (7-18) mg/dL Creatinine Cancelled (0.55-1.02) mg/dL Est Cr Clr Drug Dosing Cancelled mL/min Estimated GFR (MDRD) Cancelled (>60) mL/min BUN/Creatinine Ratio Cancelled (14-18) Glucose Cancelled (74-106) mg/dL POC Glucose 246 H 272 H (70-105) mg/dL Hemoglobin A1c (4.50-6.20) % Lactic Acid (0.4-2.0) mmol/L Calcium Cancelled (8.5-10.1) mg/dL Magnesium (1.8-2.4) mg/dl C-Reactive Protein (<1.0) mg/dL Triglycerides (<150) mg/dL Cholesterol (<200) mg/dL LDL Cholesterol Direct (<100) mg/dL HDL Cholesterol (40-59) mg/dL Ketones (0.0-0.3) mM Mycoplasma pneumon IgM (NEGATIVE) 07/09/17 07/09/17 07/09/17 Range/Units 02:10 03:03 04:04 Sodium (136-145) mEq/L Potassium (3.5-5.1) mEq/L Chloride (98-107) mEq/L Carbon Dioxide (21-32) mEq/L Anion Gap (5-15) BUN (7-18) mg/dL Creatinine (0.55-1.02) mg/dL Est Cr Clr Drug Dosing mL/min Estimated GFR (MDRD) (>60) mL/min BUN/Creatinine Ratio (14-18) Glucose (74-106) mg/dL POC Glucose 245 H 227 H (70-105) mg/dL Hemoglobin A1c (4.50-6.20) % Lactic Acid (0.4-2.0) mmol/L Calcium (8.5-10.1) mg/dL Magnesium (1.8-2.4) mg/dl C-Reactive Protein (<1.0) mg/dL Triglycerides (<150) mg/dL Cholesterol (<200) mg/dL LDL Cholesterol Direct (<100) mg/dL HDL Cholesterol (40-59) mg/dL Ketones 1.1 (0.0-0.3) mM Mycoplasma pneumon IgM (NEGATIVE) 07/09/17 07/09/17 07/09/17 Range/Units 04:04 04:04 04:04 Sodium 150 H (136-145) mEq/L Potassium 4.1 (3.5-5.1) mEq/L Chloride 115 H (98-107) mEq/L Carbon Dioxide 12 L (21-32) mEq/L Anion Gap 27.1 H (5-15) BUN 24 H (7-18) mg/dL Creatinine 1.4 H (0.55-1.02) mg/dL Est Cr Clr Drug Dosing 47.27 mL/min Estimated GFR (MDRD) 40 (>60) mL/min BUN/Creatinine Ratio 17.1 (14-18) Glucose 257 H (74-106) mg/dL POC Glucose (70-105) mg/dL Hemoglobin A1c 9.00 H (4.50-6.20) % Lactic Acid 1.1 (0.4-2.0) mmol/L Calcium 8.1 L (8.5-10.1) mg/dL Magnesium 1.9 (1.8-2.4) mg/dl C-Reactive Protein 3.3 H* (<1.0) mg/dL Triglycerides 204 H (<150) mg/dL Cholesterol 145 (<200) mg/dL LDL Cholesterol Direct 52 (<100) mg/dL HDL Cholesterol 45.0 (40-59) mg/dL Ketones (0.0-0.3) mM Mycoplasma pneumon IgM (NEGATIVE) 07/09/17 07/09/17 07/09/17 Range/Units 04:04 04:05 05:05 Sodium (136-145) mEq/L Potassium (3.5-5.1) mEq/L Chloride (98-107) mEq/L Carbon Dioxide (21-32) mEq/L Anion Gap (5-15) BUN (7-18) mg/dL Creatinine (0.55-1.02) mg/dL Est Cr Clr Drug Dosing mL/min Estimated GFR (MDRD) (>60) mL/min BUN/Creatinine Ratio (14-18) Glucose (74-106) mg/dL POC Glucose 237 H 239 H (70-105) mg/dL Hemoglobin A1c (4.50-6.20) % Lactic Acid (0.4-2.0) mmol/L Calcium (8.5-10.1) mg/dL Magnesium (1.8-2.4) mg/dl C-Reactive Protein (<1.0) mg/dL Triglycerides (<150) mg/dL Cholesterol (<200) mg/dL LDL Cholesterol Direct (<100) mg/dL HDL Cholesterol (40-59) mg/dL Ketones (0.0-0.3) mM Mycoplasma pneumon IgM Negative (NEGATIVE) 07/09/17 07/09/17 07/09/17 Range/Units 06:06 06:51 08:15 Sodium (136-145) mEq/L Potassium (3.5-5.1) mEq/L Chloride (98-107) mEq/L Carbon Dioxide (21-32) mEq/L Anion Gap (5-15) BUN (7-18) mg/dL Creatinine (0.55-1.02) mg/dL Est Cr Clr Drug Dosing mL/min Estimated GFR (MDRD) (>60) mL/min BUN/Creatinine Ratio (14-18) Glucose (74-106) mg/dL POC Glucose 241 H 226 H 199 H (70-105) mg/dL Hemoglobin A1c (4.50-6.20) % Lactic Acid (0.4-2.0) mmol/L Calcium (8.5-10.1) mg/dL Magnesium (1.8-2.4) mg/dl C-Reactive Protein (<1.0) mg/dL Triglycerides (<150) mg/dL Cholesterol (<200) mg/dL LDL Cholesterol Direct (<100) mg/dL HDL Cholesterol (40-59) mg/dL Ketones (0.0-0.3) mM Mycoplasma pneumon IgM (NEGATIVE) 07/09/17 07/09/17 07/09/17 Range/Units 08:30 09:24 10:26 Sodium 152 H (136-145) mEq/L Potassium 3.8 (3.5-5.1) mEq/L Chloride 116 H (98-107) mEq/L Carbon Dioxide 17 L (21-32) mEq/L Anion Gap 22.8 H (5-15) BUN 19 H (7-18) mg/dL Creatinine 1.4 H (0.55-1.02) mg/dL Est Cr Clr Drug Dosing 47.27 mL/min Estimated GFR (MDRD) 40 (>60) mL/min BUN/Creatinine Ratio 13.6 L (14-18) Glucose 228 H (74-106) mg/dL POC Glucose 201 H 183 H (70-105) mg/dL Hemoglobin A1c (4.50-6.20) % Lactic Acid (0.4-2.0) mmol/L Calcium 8.6 (8.5-10.1) mg/dL Magnesium (1.8-2.4) mg/dl C-Reactive Protein (<1.0) mg/dL Triglycerides (<150) mg/dL Cholesterol (<200) mg/dL LDL Cholesterol Direct (<100) mg/dL HDL Cholesterol (40-59) mg/dL Ketones (0.0-0.3) mM Mycoplasma pneumon IgM (NEGATIVE) 07/09/17 07/09/17 07/09/17 Range/Units 11:19 12:05 12:06 Sodium 153 H (136-145) mEq/L Potassium 3.5 (3.5-5.1) mEq/L Chloride 119 H (98-107) mEq/L Carbon Dioxide 17 L (21-32) mEq/L Anion Gap 20.5 H (5-15) BUN 16 (7-18) mg/dL Creatinine 1.2 H (0.55-1.02) mg/dL Est Cr Clr Drug Dosing 55.15 mL/min Estimated GFR (MDRD) 48 (>60) mL/min BUN/Creatinine Ratio 13.3 L (14-18) Glucose 204 H (74-106) mg/dL POC Glucose 184 H 176 H (70-105) mg/dL Hemoglobin A1c (4.50-6.20) % Lactic Acid (0.4-2.0) mmol/L Calcium 8.7 (8.5-10.1) mg/dL Magnesium (1.8-2.4) mg/dl C-Reactive Protein (<1.0) mg/dL Triglycerides (<150) mg/dL Cholesterol (<200) mg/dL LDL Cholesterol Direct (<100) mg/dL HDL Cholesterol (40-59) mg/dL Ketones (0.0-0.3) mM Mycoplasma pneumon IgM (NEGATIVE) 07/09/17 07/09/17 07/09/17 Range/Units 13:16 14:04 15:05 Sodium (136-145) mEq/L Potassium (3.5-5.1) mEq/L Chloride (98-107) mEq/L Carbon Dioxide (21-32) mEq/L Anion Gap (5-15) BUN (7-18) mg/dL Creatinine (0.55-1.02) mg/dL Est Cr Clr Drug Dosing mL/min Estimated GFR (MDRD) (>60) mL/min BUN/Creatinine Ratio (14-18) Glucose (74-106) mg/dL POC Glucose 187 H 191 H 199 H (70-105) mg/dL Hemoglobin A1c (4.50-6.20) % Lactic Acid (0.4-2.0) mmol/L Calcium (8.5-10.1) mg/dL Magnesium (1.8-2.4) mg/dl C-Reactive Protein (<1.0) mg/dL Triglycerides (<150) mg/dL Cholesterol (<200) mg/dL LDL Cholesterol Direct (<100) mg/dL HDL Cholesterol (40-59) mg/dL Ketones (0.0-0.3) mM Mycoplasma pneumon IgM (NEGATIVE) 07/09/17 07/09/17 Range/Units 16:05 16:20 Sodium 150 H (136-145) mEq/L Potassium 3.3 L (3.5-5.1) mEq/L Chloride 117 H (98-107) mEq/L Carbon Dioxide 16 L (21-32) mEq/L Anion Gap 20.3 H (5-15) BUN 13 (7-18) mg/dL Creatinine 1.1 H (0.55-1.02) mg/dL Est Cr Clr Drug Dosing 60.16 mL/min Estimated GFR (MDRD) 53 (>60) mL/min BUN/Creatinine Ratio 11.8 L (14-18) Glucose 216 H (74-106) mg/dL POC Glucose 208 H (70-105) mg/dL Hemoglobin A1c (4.50-6.20) % Lactic Acid (0.4-2.0) mmol/L Calcium 8.6 (8.5-10.1) mg/dL Magnesium (1.8-2.4) mg/dl C-Reactive Protein (<1.0) mg/dL Triglycerides (<150) mg/dL Cholesterol (<200) mg/dL LDL Cholesterol Direct (<100) mg/dL HDL Cholesterol (40-59) mg/dL Ketones (0.0-0.3) mM Mycoplasma pneumon IgM (NEGATIVE) [place] Results Last 24 Hours: Microbiology 07/09/17 02:10 Group A Streptococcus Rapid Screen - Final Throat NEGATIVE STREP A SCREEN Med Orders - Current: Current Medications Famotidine (Pepcid) 20 mg IVPUSH BID RAMIRO Last Admin: 07/09/17 11:23 Dose: 20 mg Hydralazine HCl (Apresoline) 20 mg IVPUSH Q6H PRN PRN Reason: Hypertension Potassium Chloride 10 meq/ (Premix) 100 mls @ 100 mls/hr IV ASDIRECTED [facility] Last Admin: 07/08/17 17:25 Dose: 100 mls/hr Azithromycin 500 mg/ Sodium (Chloride) 250 mls @ 250 mls/hr IV Q24H [facility] Last Admin: 07/08/17 20:20 Dose: 250 mls/hr Ceftriaxone Sodium 2 gm/ (Sodium Chloride) 100 mls @ 200 mls/hr IV Q24H [facility] Last Admin: 07/08/17 23:07 Dose: Not Given Insulin Human Regular 100 unit (/ Sodium Chloride) 100 mls @ 2.5 mls/hr IV TITRATE RAMIRO; 2.5 UNIT/HR PRN Reason: Protocol Last Titration: 07/09/17 13:17 Dose: 2 unit/hr, 2 mls/hr Ceftriaxone Sodium 1 gm/ (Sodium Chloride) 100 mls @ 200 mls/hr IV Q24H [facility] Last Admin: 07/08/17 23:24 Dose: 200 mls/hr Ceftriaxone Sodium 1 gm/ (Sodium Chloride) 100 mls @ 200 mls/hr IV Q24H [facility] Last Admin: 07/08/17 23:55 Dose: 200 mls/hr Dextrose/Sodium Chloride (Dextrose 5%-1/2 Ns) 1,000 mls @ 150 mls/hr IV ASDIRECTED [facility] Last Admin: 07/09/17 13:21 Dose: 150 mls/hr Ondansetron HCl (Zofran) 4 mg IVPUSH Q8H PRN PRN Reason: Nausea/Vomiting Last Admin: 07/09/17 05:39 Dose: 4 mg Scopolamine (Scopolamine) 1 each TRDERM Q72H [facility] Last Admin: 07/09/17 11:21 Dose: 1 each Sodium Chloride (Saline Flush) 10 ml FLUSH ASDIRECTED PRN PRN Reason: Keep Vein Open Last Admin: 07/08/17 16:12 Dose: 10 ml Sodium Chloride (Saline Flush) 10 ml FLUSH ASDIRECTED PRN PRN Reason: Keep Vein Open Last Admin: 07/08/17 16:13 Dose: 10 ml Discontinued Medications Sodium Chloride (Normal Saline) 1,000 mls @ 999 mls/hr IV ONETIME ONE Stop: 07/08/17 16:30 Last Admin: 07/08/17 15:40 Dose: 999 mls/hr Sodium Chloride (Normal Saline) 1,000 mls @ 999 mls/hr IV ONETIME ONE Stop: 07/08/17 16:36 Last Admin: 07/08/17 16:12 Dose: 999 mls/hr Sodium Chloride (Normal Saline) 1,000 mls @ 999 mls/hr IV ONETIME ONE Stop: 07/08/17 17:07 Last Admin: 07/08/17 16:12 Dose: 999 mls/hr Insulin Human Regular 100 unit (/ Sodium Chloride) 100 mls @ 3 mls/hr IV TITRATE RAMIRO; 3 UNIT/HR PRN Reason: Protocol Last Admin: 07/08/17 17:25 Dose: 3 unit/hr, 3 mls/hr Sodium Chloride (Normal Saline) 1,000 mls @ 999 mls/hr IV ONETIME ONE Stop: 07/08/17 17:59 Last Admin: 07/08/17 17:04 Dose: 999 mls/hr Potassium Chloride (Kcl 10 Meq In Water 100 Ml) Confirm Administered Dose 100 mls @ as directed .ROUTE .STK-MED ONE Stop: 07/08/17 17:16 Last Admin: 07/08/17 17:28 Dose: Not Given Sodium Chloride (Normal Saline) 1,000 mls @ 999 mls/hr IV ONETIME ONE Stop: 07/08/17 19:14 Last Admin: 07/08/17 18:17 Dose: 999 mls/hr Sodium Chloride (Normal Saline) 1,000 mls @ 999 mls/hr IV Q1H RAMIRO Stop: 07/08/17 21:44 Last Admin: 07/08/17 20:25 Dose: 999 mls/hr Insulin Human Regular 100 unit (/ Sodium Chloride) 100 mls @ 217.31 mls/hr IV TITRATE RAMIRO; 3 UNITS/KG/HR PRN Reason: Protocol Last Admin: 07/08/17 20:53 Dose: 3 units/kg/hr, 217.31 mls/hr Dextrose/Sodium Chloride (Dextrose 5%-Normal Saline) 1,000 mls @ 150 mls/hr IV ASDIRECTED RAMIRO Last Admin: 07/09/17 06:26 Dose: 150 mls/hr Dextrose/Water (Dextrose 5% In Water) Confirm Administered Dose 1,000 mls @ as directed .ROUTE .STK-MED ONE Stop: 07/08/17 23:07 Last Admin: 07/08/17 23:30 Dose: Not Given Ondansetron HCl (Zofran) 4 mg IVPUSH ONETIME ONE Stop: 07/08/17 15:39 Last Admin: 07/08/17 16:13 Dose: 4 mg - Exam Quality Assessment: Supplemental Oxygen, DVT Prophylaxis General: Alert, Oriented, Cooperative, No Acute Distress HEENT: Pupils Equal, Pupils Reactive, EOMI Neck: Trachea Midline, No JVD Lungs: Normal Respiratory Effort, Decreased Breath Sounds Cardiovascular: Regular Rate, Regular Rhythm GI/Abdominal Exam: Normal Bowel Sounds, Soft, Non-Tender, No Organomegaly, No Distention (Female) Exam: Deferred Back Exam: Normal Inspection Extremities: Normal Inspection Skin: Warm Neurological: No New Focal Deficit, Normal Gait, Normal Speech Psy/Mental Status: Alert, Normal Affect, Normal Mood - Problem List Review Problem List Initiated/Reviewed/Updated: Yes - My Orders Last 24 Hours: My Active Orders 07/08/17 19:00 Azithromycin [Zithromax] 500 mg Sodium Chloride 0.9% [Normal Saline] 250 ml IV Q24H 07/08/17 19:18 Cooling Warming Measures [RC] ASDIRECTED 07/08/17 19:27 Isolation [COMM] Routine 07/08/17 19:37 Ondansetron [Zofran] 4 mg IVPUSH Q8H PRN 07/08/17 19:38 INFLUENZA A,B, H1N1 BY PCR [MREF] Routine 07/08/17 19:39 STREP SCRN A RAPID W CULT CONF [RM] Routine 07/08/17 19:49 hydrALAZINE [Apresoline] 20 mg IVPUSH Q6H PRN 07/08/17 22:00 cefTRIAXone [Rocephin] 2 gm Sodium Chloride 0.9% [Normal Saline] 100 ml IV Q24H 07/08/17 22:27 STREP PNEUMONIAE ANTIGEN [MREF] Routine 07/08/17 22:30 Insulin Regular, Human [HumuLIN R] 100 unit Sodium Chloride 0.9% [Normal Saline] 99 ml IV TITRATE 07/08/17 23:00 cefTRIAXone [Rocephin] 1 gm Sodium Chloride 0.9% [Normal Saline] 100 ml IV Q24H 07/08/17 23:15 cefTRIAXone [Rocephin] 1 gm Sodium Chloride 0.9% [Normal Saline] 100 ml IV Q24H 07/09/17 02:10 CULTURE STREP A CONFIRMATION [RM] Routine 07/09/17 10:44 Activity as Tolerated [RC] .Routine 07/09/17 10:45 Scopolamine 1 each TRDERM Q72H 07/09/17 11:00 Dextrose 5%-0.45% NaCl [Dextrose 5%-1/2 NS] 1,000 ml IV ASDIRECTED Famotidine [Pepcid] 20 mg IVPUSH BID 07/09/17 Lunch Clear Liquid Diet [DIET] 07/10/17 05:00 CRP [C-REACTIVE PROTEIN] [CHEM] DAILY LACTIC ACID [CHEM] DAILY MAGNESIUM [CHEM] DAILY 07/10/17 08:00 CXR [Chest 2V] [CR] Routine 07/11/17 05:00 CRP [C-REACTIVE PROTEIN] [CHEM] DAILY LACTIC ACID [CHEM] DAILY MAGNESIUM [CHEM] DAILY - Plan Plan:: Impression: DM type 1 with DKA, AG dropped by 50%; will allow diabetic clear liquids and ice; regquired aggressive IVF baseline AG 44--~26 Query infectious process Leukocytosis, unspecified Hyperlipidemia Tobacco dependence Plan: Infectious-->resp work up Droplet isolation, check Influenza PCR 2 liters wide open/ heated fluids/Barehugger DKA protocol Antiemetic as needed Habitrol scheduled DM educator Consult dietary for wgt loss Consult PT/OT/CM DVT/GI prophylaxis
[2017-07-09] MEDS ORDERED: Acetaminophen 325 MG Tab PO PRN (17:20)
[2017-07-09] MEDS ORDERED: Potassium Chloride 20 MEQ in Dextrose 5% in Water 1,000 ML IV SCH ×2 (17:30)
[2017-07-09] MEDS: Potassium Chloride 20 MEQ Tab.ER PO SCH (17:48)
[2017-07-09] MEDS: Azithromycin 500 MG in Sodium Chloride 0.9% 250 ML IV SCH (18:50)
[2017-07-09] MEDS ORDERED: Sodium Chloride 0.9% 100 ML ONE (18:52)
[2017-07-09] MEDS: Potassium Chloride 20 MEQ in Dextrose 5% in Water 1,000 ML IV SCH ×2 (19:06)
[2017-07-09] MEDS: cefTRIAXone 1 GM in Sodium Chloride 0.9% 100 ML IV SCH ×2 (22:23→22:50)
[2017-07-10] MEDS: Potassium Chloride 20 MEQ in Dextrose 5% in Water 1,000 ML IV SCH ×8 (01:12→23:33)
[2017-07-10] MEDS: Famotidine 20 MG/2 ML SDV IVPUSH SCH ×2 (08:10→22:06)
[2017-07-10] MEDS: Potassium Chloride 20 MEQ Tab.ER PO SCH ×2 (08:10→21:55)
--- NOTE | 2017-07-10 09:44 | CR ---
Chest: 2 views of the chest were obtained. Comparison: Prior portable chest x-ray of 07/08/17. Heart size and mediastinum are normal. Lungs are clear. Bony structures are unremarkable. Impression: 1. Nothing acute is seen on 2 view chest x-ray. Diagnostic code #1
[2017-07-10] MEDS ORDERED: Magnesium Sulfate/Water 2 GM in Premix Bag 1 BAG IV ONE (11:12)
[2017-07-10] MEDS: Potassium Chloride 10 MEQ in Premix Bag 1 BAG IV SCH ×5 (11:47→15:49)
--- NOTE | 2017-07-10 17:47 | CR ---
Chest: Portable view of the chest was obtained. Comparison: No prior study. Heart size and mediastinum are normal. Lungs are clear with no acute pulmonary densities being seen. Bony structures are grossly intact. Impression: 1. Nothing acute is appreciated on portable chest x-ray. Diagnostic code #1
[2017-07-10] MEDS: Insulin Aspart 100 Units/ML 3 ML Pen SUBCUT SCH ×2 (18:06→22:06)
[2017-07-10] MEDS: Azithromycin 500 MG in Sodium Chloride 0.9% 250 ML IV SCH (18:14)
--- NOTE | 2017-07-10 20:20 | PCM.PN ---
- General Info Date of Service: 07/10/17 Subjective Update: No complaints; negative infectious work up. Functional Status: Reports: Pain Controlled, Tolerating Diet, Ambulating, Urinating - Review of Systems General: Reports: No Symptoms HEENT: Reports: No Symptoms Pulmonary: Reports: No Symptoms Cardiovascular: Reports: No Symptoms Gastrointestinal: Reports: No Symptoms Genitourinary: Reports: No Symptoms Musculoskeletal: Reports: No Symptoms Skin: Reports: No Symptoms Neurological: Reports: No Symptoms Psychiatric: Reports: No Symptoms - Patient Data Vitals - Most Recent: Last Vital Signs Temp 37.0 C 07/10/17 16:00 Pulse 96 07/10/17 04:00 Resp 16 07/10/17 16:00 BP 113/69 07/10/17 16:00 Pulse Ox 100 07/10/17 16:00 Weight - Most Recent: 72.529 kg I&O - Last 24 Hours: Intake & Output 07/10/17 07/10/17 07/10/17 06:59 14:59 22:59 Intake Total 2711 3674 3372 Output Total 1400 1000 400 Balance 1311 2674 2972 Lab Results Last 24 Hours: Laboratory Results - last 24 hr 07/09/17 07/09/17 07/09/17 Range/Units 20:22 21:03 21:20 Sodium 147 H (136-145) mEq/L Potassium 3.3 L (3.5-5.1) mEq/L Chloride 115 H (98-107) mEq/L Carbon Dioxide 18 L (21-32) mEq/L Anion Gap 17.3 H (5-15) BUN 9 (7-18) mg/dL Creatinine 1.0 (0.55-1.02) mg/dL Est Cr Clr Drug Dosing 66.18 mL/min Estimated GFR (MDRD) 59 (>60) mL/min BUN/Creatinine Ratio 9.0 L (14-18) Glucose 224 H (74-106) mg/dL POC Glucose 212 H 201 H (70-105) mg/dL Lactic Acid (0.4-2.0) mmol/L Calcium 8.4 L (8.5-10.1) mg/dL Magnesium (1.8-2.4) mg/dl C-Reactive Protein (<1.0) mg/dL 07/09/17 07/09/17 07/10/17 Range/Units 22:04 22:53 00:13 Sodium (136-145) mEq/L Potassium (3.5-5.1) mEq/L Chloride (98-107) mEq/L Carbon Dioxide (21-32) mEq/L Anion Gap (5-15) BUN (7-18) mg/dL Creatinine (0.55-1.02) mg/dL Est Cr Clr Drug Dosing mL/min Estimated GFR (MDRD) (>60) mL/min BUN/Creatinine Ratio (14-18) Glucose (74-106) mg/dL POC Glucose 194 H 200 H 254 H (70-105) mg/dL Lactic Acid (0.4-2.0) mmol/L Calcium (8.5-10.1) mg/dL Magnesium (1.8-2.4) mg/dl C-Reactive Protein (<1.0) mg/dL 07/10/17 07/10/17 07/10/17 Range/Units 00:55 01:02 01:53 Sodium 146 H (136-145) mEq/L Potassium 3.2 L (3.5-5.1) mEq/L Chloride 114 H (98-107) mEq/L Carbon Dioxide 20 L (21-32) mEq/L Anion Gap 15.2 H (5-15) BUN 8 (7-18) mg/dL Creatinine 1.0 (0.55-1.02) mg/dL Est Cr Clr Drug Dosing 66.18 mL/min Estimated GFR (MDRD) 59 (>60) mL/min BUN/Creatinine Ratio 8.0 L (14-18) Glucose 210 H (74-106) mg/dL POC Glucose 189 H 182 H (70-105) mg/dL Lactic Acid (0.4-2.0) mmol/L Calcium 8.5 (8.5-10.1) mg/dL Magnesium (1.8-2.4) mg/dl C-Reactive Protein (<1.0) mg/dL 07/10/17 07/10/17 07/10/17 Range/Units 03:12 03:59 05:52 Sodium (136-145) mEq/L Potassium (3.5-5.1) mEq/L Chloride (98-107) mEq/L Carbon Dioxide (21-32) mEq/L Anion Gap (5-15) BUN (7-18) mg/dL Creatinine (0.55-1.02) mg/dL Est Cr Clr Drug Dosing mL/min Estimated GFR (MDRD) (>60) mL/min BUN/Creatinine Ratio (14-18) Glucose (74-106) mg/dL POC Glucose 186 H 167 H 199 H (70-105) mg/dL Lactic Acid (0.4-2.0) mmol/L Calcium (8.5-10.1) mg/dL Magnesium (1.8-2.4) mg/dl C-Reactive Protein (<1.0) mg/dL 07/10/17 07/10/17 07/10/17 Range/Units 05:54 05:54 05:55 Sodium 144 (136-145) mEq/L Potassium 3.3 L (3.5-5.1) mEq/L Chloride 110 H (98-107) mEq/L Carbon Dioxide 17 L (21-32) mEq/L Anion Gap 20.3 H (5-15) BUN 7 (7-18) mg/dL Creatinine 0.9 (0.55-1.02) mg/dL Est Cr Clr Drug Dosing 73.53 mL/min Estimated GFR (MDRD) > 60 (>60) mL/min BUN/Creatinine Ratio 7.8 L (14-18) Glucose 202 H (74-106) mg/dL POC Glucose (70-105) mg/dL Lactic Acid 0.9 (0.4-2.0) mmol/L Calcium 8.6 (8.5-10.1) mg/dL Magnesium 1.7 L (1.8-2.4) mg/dl C-Reactive Protein 2.0 H* (<1.0) mg/dL 07/10/17 07/10/17 07/10/17 Range/Units 06:42 08:17 09:14 Sodium (136-145) mEq/L Potassium (3.5-5.1) mEq/L Chloride (98-107) mEq/L Carbon Dioxide (21-32) mEq/L Anion Gap (5-15) BUN (7-18) mg/dL Creatinine (0.55-1.02) mg/dL Est Cr Clr Drug Dosing mL/min Estimated GFR (MDRD) (>60) mL/min BUN/Creatinine Ratio (-18) Glucose (74-106) mg/dL POC Glucose 173 H 222 H 232 H (70-105) mg/dL Lactic Acid (0.4-2.0) mmol/L Calcium (8.5-10.1) mg/dL Magnesium (1.8-2.4) mg/dl C-Reactive Protein (<1.0) mg/dL 07/10/17 07/10/17 07/10/17 Range/Units 10:13 11:01 12:02 Sodium (136-145) mEq/L Potassium (3.5-5.1) mEq/L Chloride (98-107) mEq/L Carbon Dioxide (21-32) mEq/L Anion Gap (5-15) BUN (7-18) mg/dL Creatinine (0.55-1.02) mg/dL Est Cr Clr Drug Dosing mL/min Estimated GFR (MDRD) (>60) mL/min BUN/Creatinine Ratio (14-18) Glucose (74-106) mg/dL POC Glucose 273 H 240 H 228 H (70-105) mg/dL Lactic Acid (0.4-2.0) mmol/L Calcium (8.5-10.1) mg/dL Magnesium (1.8-2.4) mg/dl C-Reactive Protein (<1.0) mg/dL 07/10/17 07/10/17 07/10/17 Range/Units 12:04 13:07 14:06 Sodium 141 (136-145) mEq/L Potassium 3.3 L (3.5-5.1) mEq/L Chloride 107 (98-107) mEq/L Carbon Dioxide 20 L (21-32) mEq/L Anion Gap 17.3 H (5-15) BUN 5 L (7-18) mg/dL Creatinine 1.0 (0.55-1.02) mg/dL Est Cr Clr Drug Dosing 66.18 mL/min Estimated GFR (MDRD) 59 (>60) mL/min BUN/Creatinine Ratio 5.0 L (14-18) Glucose 230 H (74-106) mg/dL POC Glucose 212 H 223 H (70-105) mg/dL Lactic Acid (0.4-2.0) mmol/L Calcium 8.8 (8.5-10.1) mg/dL Magnesium (1.8-2.4) mg/dl C-Reactive Protein (<1.0) mg/dL 07/10/17 07/10/17 07/10/17 Range/Units 15:05 16:01 16:22 Sodium 139 (136-145) mEq/L Potassium 3.7 (3.5-5.1) mEq/L Chloride 107 (98-107) mEq/L Carbon Dioxide 20 L (21-32) mEq/L Anion Gap 15.7 H (5-15) BUN 5 L (7-18) mg/dL Creatinine 0.9 (0.55-1.02) mg/dL Est Cr Clr Drug Dosing 73.53 mL/min Estimated GFR (MDRD) > 60 (>60) mL/min BUN/Creatinine Ratio 5.6 L (14-18) Glucose 236 H (74-106) mg/dL POC Glucose 222 H 225 H (70-105) mg/dL Lactic Acid (0.4-2.0) mmol/L Calcium 8.7 (8.5-10.1) mg/dL Magnesium (1.8-2.4) mg/dl C-Reactive Protein (<1.0) mg/dL 07/10/17 07/10/17 07/10/17 Range/Units 17:08 18:01 20:02 Sodium (136-145) mEq/L Potassium (3.5-5.1) mEq/L Chloride (98-107) mEq/L Carbon Dioxide (21-32) mEq/L Anion Gap (5-15) BUN (7-18) mg/dL Creatinine (0.55-1.02) mg/dL Est Cr Clr Drug Dosing mL/min Estimated GFR (MDRD) (>60) mL/min BUN/Creatinine Ratio (14-18) Glucose (74-106) mg/dL POC Glucose 216 H 208 H 218 H (70-105) mg/dL Lactic Acid (0.4-2.0) mmol/L Calcium (8.5-10.1) mg/dL Magnesium (1.8-2.4) mg/dl C-Reactive Protein (<1.0) mg/dL Chase Results Last 24 Hours: Microbiology 07/09/17 02:10 Quick Strep Confirmation Culture - Preliminary Throat NEGATIVE FOR BETA STREP Group A Streptococcus Rapid Screen - Final NEGATIVE STREP A SCREEN Med Orders - Current: Current Medications Acetaminophen (Tylenol) 650 mg PO Q6H PRN PRN Reason: Pain/Fever Last Admin: 07/09/17 17:47 Dose: 650 mg Famotidine (Pepcid) 20 mg IVPUSH BID [facility] Last Admin: 07/10/17 08:10 Dose: 20 mg Hydralazine HCl (Apresoline) 20 mg IVPUSH Q6H PRN PRN Reason: Hypertension Potassium Chloride 10 meq/ (Premix) 100 mls @ 100 mls/hr IV ASDIRECTED [facility] Last Infusion: 07/10/17 11:58 Dose: 75 mls/hr Azithromycin 500 mg/ Sodium (Chloride) 250 mls @ 250 mls/hr IV Q24H [facility] Last Admin: 07/10/17 18:14 Dose: 250 mls/hr Insulin Human Regular 100 unit (/ Sodium Chloride) 100 mls @ 2.5 mls/hr IV TITRATE RAMIRO; 2.5 UNIT/HR PRN Reason: Protocol Last Titration: 07/10/17 18:09 Dose: 0 unit/hr, 0 mls/hr Potassium Chloride 20 meq/ (Dextrose/Water) 1,010 mls @ 150 mls/hr IV Q7H [facility] Last Infusion: 07/10/17 18:09 Dose: 0 mls/hr Ceftriaxone Sodium 2 gm/ (Sodium Chloride) 100 mls @ 200 mls/hr IV Q24H [facility] Insulin Aspart (Novolog) 0 unit SUBCUT QIDACANDBED [facility] PRN Reason: Protocol Last Admin: 07/10/17 18:06 Dose: 6 units Ondansetron HCl (Zofran) 4 mg IVPUSH Q8H PRN PRN Reason: Nausea/Vomiting Last Admin: 07/09/17 05:39 Dose: 4 mg Potassium Chloride (Klor-Con M20) 40 meq PO BID [facility] Stop: 07/11/17 09:01 Last Admin: 07/10/17 08:10 Dose: Not Given Scopolamine (Scopolamine) 1 each TRDERM Q72H [facility] Last Admin: 07/09/17 11:21 Dose: 1 each Sodium Chloride (Saline Flush) 10 ml FLUSH ASDIRECTED PRN PRN Reason: Keep Vein Open Last Admin: 07/08/17 16:12 Dose: 10 ml Sodium Chloride (Saline Flush) 10 ml FLUSH ASDIRECTED PRN PRN Reason: Keep Vein Open Last Admin: 07/08/17 16:13 Dose: 10 ml Discontinued Medications Sodium Chloride (Normal Saline) 1,000 mls @ 999 mls/hr IV ONETIME ONE Stop: 07/08/17 16:30 Last Admin: 07/08/17 15:40 Dose: 999 mls/hr Sodium Chloride (Normal Saline) 1,000 mls @ 999 mls/hr IV ONETIME ONE Stop: 07/08/17 16:36 Last Admin: 07/08/17 16:12 Dose: 999 mls/hr Sodium Chloride (Normal Saline) 1,000 mls @ 999 mls/hr IV ONETIME ONE Stop: 07/08/17 17:07 Last Admin: 07/08/17 16:12 Dose: 999 mls/hr Insulin Human Regular 100 unit (/ Sodium Chloride) 100 mls @ 3 mls/hr IV TITRATE RAMIRO; 3 UNIT/HR PRN Reason: Protocol Last Admin: 07/08/17 17:25 Dose: 3 unit/hr, 3 mls/hr Sodium Chloride (Normal Saline) 1,000 mls @ 999 mls/hr IV ONETIME ONE Stop: 07/08/17 17:59 Last Admin: 07/08/17 17:04 Dose: 999 mls/hr Potassium Chloride (Kcl 10 Meq In Water 100 Ml) Confirm Administered Dose 100 mls @ as directed .ROUTE .STK-MED ONE Stop: 07/08/17 17:16 Last Admin: 07/08/17 17:28 Dose: Not Given Sodium Chloride (Normal Saline) 1,000 mls @ 999 mls/hr IV ONETIME ONE Stop: 07/08/17 19:14 Last Admin: 07/08/17 18:17 Dose: 999 mls/hr Sodium Chloride (Normal Saline) 1,000 mls @ 999 mls/hr IV Q1H RAMIRO Stop: 07/08/17 21:44 Last Admin: 07/08/17 20:25 Dose: 999 mls/hr Ceftriaxone Sodium 2 gm/ (Sodium Chloride) 100 mls @ 200 mls/hr IV Q24H RAMIRO Last Admin: 07/08/17 23:07 Dose: Not Given Insulin Human Regular 100 unit (/ Sodium Chloride) 100 mls @ 217.31 mls/hr IV TITRATE RAMIRO; 3 UNITS/KG/HR PRN Reason: Protocol Last Admin: 07/08/17 20:53 Dose: 3 units/kg/hr, 217.31 mls/hr Ceftriaxone Sodium 1 gm/ (Sodium Chloride) 100 mls @ 200 mls/hr IV Q24H [facility] Last Admin: 07/09/17 22:23 Dose: 200 mls/hr Ceftriaxone Sodium 1 gm/ (Sodium Chloride) 100 mls @ 200 mls/hr IV Q24H [facility] Last Admin: 07/09/17 22:50 Dose: 200 mls/hr Dextrose/Sodium Chloride (Dextrose 5%-Normal Saline) 1,000 mls @ 150 mls/hr IV ASDIRECTED [facility] Last Admin: 07/09/17 06:26 Dose: 150 mls/hr Dextrose/Water (Dextrose 5% In Water) Confirm Administered Dose 1,000 mls @ as directed .ROUTE .[facility] ONE Stop: 07/08/17 23:07 Last Admin: 07/08/17 23:30 Dose: Not Given Dextrose/Sodium Chloride (Dextrose 5%-1/2 Ns) 1,000 mls @ 150 mls/hr IV ASDIRECTED [facility] Last Admin: 07/09/17 13:21 Dose: 150 mls/hr Potassium Chloride 20 meq/ (Dextrose/Water) 1,010 mls @ 150 mls/hr IV ASDIRECTED [facility] Sodium Chloride (Normal Saline) Confirm Administered Dose 100 mls @ as directed .ROUTE .[facility] ONE Stop: 07/09/17 18:53 Last Admin: 07/09/17 19:41 Dose: Not Given Potassium Chloride 10 meq/ (Premix) 100 mls @ 100 mls/hr IV Q1H [facility] Stop: 07/10/17 15:14 Last Admin: 07/10/17 15:49 Dose: 75 mls/hr Magnesium Sulfate 2 gm/ Premix 50 mls @ 25 mls/hr IV ONETIME ONE Stop: 07/10/17 13:11 Last Admin: 07/10/17 11:54 Dose: 25 mls/hr Ondansetron HCl (Zofran) 4 mg IVPUSH ONETIME ONE Stop: 07/08/17 15:39 Last Admin: 07/08/17 16:13 Dose: 4 mg - Exam Quality Assessment: Supplemental Oxygen, DVT Prophylaxis General: Alert, Oriented, Cooperative HEENT: Pupils Equal, Pupils Reactive, EOMI Neck: Trachea Midline, No JVD Lungs: Normal Respiratory Effort Cardiovascular: Regular Rate, Regular Rhythm GI/Abdominal Exam: Normal Bowel Sounds, Soft, Non-Tender, No Organomegaly (Female) Exam: Deferred Back Exam: Normal Inspection Extremities: Normal Inspection, No Pedal Edema, Normal Capillary Refill Skin: Warm Neurological: No New Focal Deficit Psy/Mental Status: Alert, Normal Affect, Normal Mood - Problem List Review Problem List Initiated/Reviewed/Updated: Yes - My Orders Last 24 Hours: My Active Orders 07/10/17 17:30 Communication Order [RC] ASDIRECTED 07/10/17 18:00 Insulin Aspart [NovoLOG] See Protocol SUBCUT QIDACANDBED 07/10/17 18:17 Consult to Material Engineer [Consult to Diabetic Nurse Specialist] [CONS] Routine 07/10/17 20:00 Communication Order [RC] ASDIRECTED 07/10/17 22:00 cefTRIAXone [Rocephin] 2 gm Sodium Chloride 0.9% [Normal Saline] 100 ml IV Q24H 07/10/17 Dinner Full Liquid Diet [DIET] 07/11/17 05:00 CRP [C-REACTIVE PROTEIN] [CHEM] DAILY LACTIC ACID [CHEM] DAILY MAGNESIUM [CHEM] DAILY - Plan Plan:: Impression: DM type 1 with DKA, AG dropped by 50%; will allow diabetic clear liquids and ice; regquired aggressive IVF baseline AG 44--~26 Query infectious process Leukocytosis, unspecified Hyperlipidemia Tobacco dependence Plan: Infectious-->resp work up Droplet isolation, check Influenza PCR 2 liters wide open/ heated fluids/[place]ugger DKA protocol Antiemetic as needed Habitrol scheduled DM educator Consult dietary for wgt loss Consult PT/OT/CM DVT/GI prophylaxis
[2017-07-10] MEDS ORDERED: cefTRIAXone 2 GM Vial ONE (21:57)
[2017-07-10] MEDS ORDERED: cefTRIAXone 2 GM in Sodium Chloride 0.9% 100 ML IV SCH (22:00)
[2017-07-10] MEDS ORDERED: cefTRIAXone 1 GM in Sodium Chloride 0.9% 100 ML IV SCH ×2 (22:00→22:30)
[2017-07-11] MEDS: Potassium Chloride 20 MEQ in Dextrose 5% in Water 1,000 ML IV SCH ×2 (06:25)
[2017-07-11] MEDS: Insulin Aspart 100 Units/ML 3 ML Pen SUBCUT SCH ×4 (06:26→21:06)
[2017-07-11] MEDS ORDERED: cefTRIAXone 2 GM in Sodium Chloride 0.9% 100 ML IV SCH ×5 (07:24→22:00)
[2017-07-11] MEDS: Famotidine 20 MG/2 ML SDV IVPUSH SCH (08:57)
[2017-07-11] MEDS: Potassium Chloride 20 MEQ Tab.ER PO SCH (08:57)
--- NOTE | 2017-07-11 12:09 | PCM.PN ---
<Luis F Delatorre - Last Filed: 07/11/17 15:24> - General Info Date of Service: 07/11/17 Admission Dx/Problem (Free Text): diabetic ketoacidosis Subjective Update: In to see Elizabeth. She is resting comfortably in bed. No complaints. She at a full lunch with no concerns. Diabetic ed and dietitian in to see her. She is going to establish care locally with Dr. Salmeron in our clinic. We had a lengthy discussion about her nicotine use. She reports she has not had a cigarette in 5 days and has no urge to try one now. Discussed the importance of avoiding smoking and how it can combine with her diabetes to have detrimental effects. She states she would like to stop smoking and her should stop too. Offered encouragement and a nicotine patch. She refused the nicotine patch because she has had no urge to smoke. Labs are improving. She will be downgraded to medical/surgical status. Functional Status: Reports: Pain Controlled, Tolerating Diet, Ambulating, Urinating. Denies: New Symptoms - Review of Systems General: Reports: No Symptoms HEENT: Reports: No Symptoms Pulmonary: Reports: No Symptoms Cardiovascular: Reports: No Symptoms Gastrointestinal: Reports: No Symptoms Genitourinary: Reports: No Symptoms Musculoskeletal: Reports: No Symptoms Skin: Reports: No Symptoms Neurological: Reports: No Symptoms Psychiatric: Reports: No Symptoms - Patient Data Vitals - Most Recent: Last Vital Signs Temp 97.7 F 07/11/17 08:00 Pulse 90 07/11/17 08:00 Resp 15 07/11/17 08:00 BP 102/62 07/11/17 08:00 Pulse Ox 98 07/11/17 08:00 Weight - Most Recent: 73.527 kg I&O - Last 24 Hours: Intake & Output 07/10/17 07/11/17 07/11/17 22:59 06:59 14:59 Intake Total 3652 500 240 Output Total 800 1600 Balance 2852 -1100 240 Lab Results Last 24 Hours: Laboratory Results - last 24 hr 07/10/17 07/10/17 07/10/17 Range/Units 12:04 13:07 14:06 Sodium 141 (136-145) mEq/L Potassium 3.3 L (3.5-5.1) mEq/L Chloride 107 (98-107) mEq/L Carbon Dioxide 20 L (21-32) mEq/L Anion Gap 17.3 H (5-15) BUN 5 L (7-18) mg/dL Creatinine 1.0 (0.55-1.02) mg/dL Est Cr Clr Drug Dosing 66.18 mL/min Estimated GFR (MDRD) 59 (>60) mL/min BUN/Creatinine Ratio 5.0 L (14-18) Glucose 230 H (74-106) mg/dL POC Glucose 212 H 223 H (70-105) mg/dL Lactic Acid (0.4-2.0) mmol/L Calcium 8.8 (8.5-10.1) mg/dL Magnesium (1.8-2.4) mg/dl C-Reactive Protein (<1.0) mg/dL 07/10/17 07/10/17 07/10/17 Range/Units 15:05 16:01 16:22 Sodium 139 (136-145) mEq/L Potassium 3.7 (3.5-5.1) mEq/L Chloride 107 (98-107) mEq/L Carbon Dioxide 20 L (21-32) mEq/L Anion Gap 15.7 H (5-15) BUN 5 L (7-18) mg/dL Creatinine 0.9 (0.55-1.02) mg/dL Est Cr Clr Drug Dosing 73.53 mL/min Estimated GFR (MDRD) > 60 (>60) mL/min BUN/Creatinine Ratio 5.6 L (14-18) Glucose 236 H (74-106) mg/dL POC Glucose 222 H 225 H (70-105) mg/dL Lactic Acid (0.4-2.0) mmol/L Calcium 8.7 (8.5-10.1) mg/dL Magnesium (1.8-2.4) mg/dl C-Reactive Protein (<1.0) mg/dL 07/10/17 07/10/17 07/10/17 Range/Units 17:08 18:01 20:02 Sodium (136-145) mEq/L Potassium (3.5-5.1) mEq/L Chloride (98-107) mEq/L Carbon Dioxide (21-32) mEq/L Anion Gap (5-15) BUN (7-18) mg/dL Creatinine (0.55-1.02) mg/dL Est Cr Clr Drug Dosing mL/min Estimated GFR (MDRD) (>60) mL/min BUN/Creatinine Ratio (14-18) Glucose (74-106) mg/dL POC Glucose 216 H 208 H 218 H (70-105) mg/dL Lactic Acid (0.4-2.0) mmol/L Calcium (8.5-10.1) mg/dL Magnesium (1.8-2.4) mg/dl C-Reactive Protein (<1.0) mg/dL 07/10/17 07/11/17 07/11/17 Range/Units 22:02 05:12 05:12 Sodium 142 (136-145) mEq/L Potassium 4.0 (3.5-5.1) mEq/L Chloride 110 H (98-107) mEq/L Carbon Dioxide 20 L (21-32) mEq/L Anion Gap 16.0 H (5-15) BUN 6 L (7-18) mg/dL Creatinine 0.7 (0.55-1.02) mg/dL Est Cr Clr Drug Dosing 94.54 mL/min Estimated GFR (MDRD) > 60 (>60) mL/min BUN/Creatinine Ratio 8.6 L (14-18) Glucose 240 H (74-106) mg/dL POC Glucose 201 H (70-105) mg/dL Lactic Acid 0.8 (0.4-2.0) mmol/L Calcium 8.5 (8.5-10.1) mg/dL Magnesium 2.1 (1.8-2.4) mg/dl C-Reactive Protein 1.1 H* (<1.0) mg/dL 07/11/17 07/11/17 Range/Units 06:23 11:24 Sodium (136-145) mEq/L Potassium (3.5-5.1) mEq/L Chloride (98-107) mEq/L Carbon Dioxide (21-32) mEq/L Anion Gap (5-15) BUN (7-18) mg/dL Creatinine (0.55-1.02) mg/dL Est Cr Clr Drug Dosing mL/min Estimated GFR (MDRD) (>60) mL/min BUN/Creatinine Ratio (14-18) Glucose (74-106) mg/dL POC Glucose 264 H 267 H (70-105) mg/dL Lactic Acid (0.4-2.0) mmol/L Calcium (8.5-10.1) mg/dL Magnesium (1.8-2.4) mg/dl C-Reactive Protein (<1.0) mg/dL [facility] Results Last 24 Hours: Microbiology 07/09/17 02:10 Quick Strep Confirmation Culture - Final Throat NEGATIVE FOR BETA STREP Group A Streptococcus Rapid Screen - Final NEGATIVE STREP A SCREEN Med Orders - Current: Current Medications Acetaminophen (Tylenol) 650 mg PO Q6H PRN PRN Reason: Pain/Fever Last Admin: 07/09/17 17:47 Dose: 650 mg Famotidine (Pepcid) 20 mg PO BID RAM[facility]O Hydralazine HCl (Apresoline) 20 mg IVPUSH Q6H PRN PRN Reason: Hypertension Potassium Chloride 10 meq/ (Premix) 100 mls @ 100 mls/hr IV ASDIRECTED [facility]IRO Last Infusion: 07/10/17 11:58 Dose: 75 mls/hr Insulin Human Regular 100 unit (/ Sodium Chloride) 100 mls @ 2.5 mls/hr IV TITRATE RAMIRO; 2.5 UNIT/HR PRN Reason: Protocol Last Titration: 07/10/17 18:09 Dose: 0 unit/hr, 0 mls/hr Insulin Aspart (Novolog) 0 unit SUBCUT QIDACANDBED [facility]IRO PRN Reason: Protocol Last Admin: 07/11/17 11:31 Dose: 9 units Ondansetron HCl (Zofran) 4 mg IVPUSH Q8H PRN PRN Reason: Nausea/Vomiting Last Admin: 07/09/17 05:39 Dose: 4 mg Scopolamine (Scopolamine) 1 each TRDERM Q72H [facility]O Last Admin: 07/09/17 11:21 Dose: 1 each Sodium Chloride (Saline Flush) 10 ml FLUSH ASDIRECTED PRN PRN Reason: Keep Vein Open Last Admin: 07/08/17 16:12 Dose: 10 ml Sodium Chloride (Saline Flush) 10 ml FLUSH ASDIRECTED PRN PRN Reason: Keep Vein Open Last Admin: 07/08/17 16:13 Dose: 10 ml Discontinued Medications Ceftriaxone Sodium (Rocephin) Confirm Administered Dose 2 gm .ROUTE .STK-MED ONE Stop: 07/10/17 21:58 Last Admin: 07/10/17 22:07 Dose: Not Given Famotidine (Pepcid) 20 mg IVPUSH BID [facility] Last Admin: 07/11/17 08:57 Dose: 20 mg Sodium Chloride (Normal Saline) 1,000 mls @ 999 mls/hr IV ONETIME ONE Stop: 07/08/17 16:30 Last Admin: 07/08/17 15:40 Dose: 999 mls/hr Sodium Chloride (Normal Saline) 1,000 mls @ 999 mls/hr IV ONETIME ONE Stop: 07/08/17 16:36 Last Admin: 07/08/17 16:12 Dose: 999 mls/hr Sodium Chloride (Normal Saline) 1,000 mls @ 999 mls/hr IV ONETIME ONE Stop: 07/08/17 17:07 Last Admin: 07/08/17 16:12 Dose: 999 mls/hr Insulin Human Regular 100 unit (/ Sodium Chloride) 100 mls @ 3 mls/hr IV TITRATE RAMIRO; 3 UNIT/HR PRN Reason: Protocol Last Admin: 07/08/17 17:25 Dose: 3 unit/hr, 3 mls/hr Sodium Chloride (Normal Saline) 1,000 mls @ 999 mls/hr IV ONETIME ONE Stop: 07/08/17 17:59 Last Admin: 07/08/17 17:04 Dose: 999 mls/hr Potassium Chloride (Kcl 10 Meq In Water 100 Ml) Confirm Administered Dose 100 mls @ as directed .ROUTE .STK-MED ONE Stop: 07/08/17 17:16 Last Admin: 07/08/17 17:28 Dose: Not Given Sodium Chloride (Normal Saline) 1,000 mls @ 999 mls/hr IV ONETIME ONE Stop: 07/08/17 19:14 Last Admin: 07/08/17 18:17 Dose: 999 mls/hr Sodium Chloride (Normal Saline) 1,000 mls @ 999 mls/hr IV Q1H [facility] Stop: 07/08/17 21:44 Last Admin: 07/08/17 20:25 Dose: 999 mls/hr Azithromycin 500 mg/ Sodium (Chloride) 250 mls @ 250 mls/hr IV Q24H [facility] Last Admin: 07/10/17 18:14 Dose: 250 mls/hr Ceftriaxone Sodium 2 gm/ (Sodium Chloride) 100 mls @ 200 mls/hr IV Q24H [facility] Last Admin: 07/08/17 23:07 Dose: Not Given Insulin Human Regular 100 unit (/ Sodium Chloride) 100 mls @ 217.31 mls/hr IV TITRATE RAMIRO; 3 UNITS/KG/HR PRN Reason: Protocol Last Admin: 07/08/17 20:53 Dose: 3 units/kg/hr, 217.31 mls/hr Ceftriaxone Sodium 1 gm/ (Sodium Chloride) 100 mls @ 200 mls/hr IV Q24H [facility] Last Admin: 07/09/17 22:23 Dose: 200 mls/hr Ceftriaxone Sodium 1 gm/ (Sodium Chloride) 100 mls @ 200 mls/hr IV Q24H [facility] Last Admin: 07/09/17 22:50 Dose: 200 mls/hr Dextrose/Sodium Chloride (Dextrose 5%-Normal Saline) 1,000 mls @ 150 mls/hr IV ASDIRECTED [facility] Last Admin: 07/09/17 06:26 Dose: 150 mls/hr Dextrose/Water (Dextrose 5% In Water) Confirm Administered Dose 1,000 mls @ as directed .ROUTE .[facility] ONE Stop: 07/08/17 23:07 Last Admin: 07/08/17 23:30 Dose: Not Given Dextrose/Sodium Chloride (Dextrose 5%-1/2 Ns) 1,000 mls @ 150 mls/hr IV ASDIRECTED [facility] Last Admin: 07/09/17 13:21 Dose: 150 mls/hr Potassium Chloride 20 meq/ (Dextrose/Water) 1,010 mls @ 150 mls/hr IV ASDIRECTED [facility]O Potassium Chloride 20 meq/ (Dextrose/Water) 1,010 mls @ 150 mls/hr IV Q7H [facility] Last Admin: 07/11/17 06:25 Dose: Not Given Sodium Chloride (Normal Saline) Confirm Administered Dose 100 mls @ as directed .ROUTE .[facility] ONE Stop: 07/09/17 18:53 Last Admin: 07/09/17 19:41 Dose: Not Given Ceftriaxone Sodium 2 gm/ (Sodium Chloride) 100 mls @ 200 mls/hr IV Q24H [facility] Last Admin: 07/11/17 00:52 Dose: Not Given Potassium Chloride 10 meq/ (Premix) 100 mls @ 100 mls/hr IV Q1H [facility] Stop: 07/10/17 15:14 Last Admin: 07/10/17 15:49 Dose: 75 mls/hr Magnesium Sulfate 2 gm/ Premix 50 mls @ 25 mls/hr IV ONETIME ONE Stop: 07/10/17 13:11 Last Admin: 07/10/17 11:54 Dose: 25 mls/hr Ceftriaxone Sodium 1 gm/ (Sodium Chloride) 100 mls @ 200 mls/hr IV Q24H [facility] Last Admin: 07/10/17 22:22 Dose: 200 mls/hr Ceftriaxone Sodium 1 gm/ (Sodium Chloride) 100 mls @ 200 mls/hr IV Q24H [facility] Last Admin: 07/10/17 22:56 Dose: 200 mls/hr Ceftriaxone Sodium 2 gm/ (Sodium Chloride) 100 mls @ 200 mls/hr IV Q24H [facility] Ceftriaxone Sodium 2 gm/ (Sodium Chloride) 100 mls @ 200 mls/hr IV Q24H [facility] Ceftriaxone Sodium 2 gm/ (Sodium Chloride) 100 mls @ 200 mls/hr IV Q24H [facility] Ondansetron HCl (Zofran) 4 mg IVPUSH ONETIME ONE Stop: 07/08/17 15:39 Last Admin: 07/08/17 16:13 Dose: 4 mg Potassium Chloride (Klor-Con M20) 40 meq PO BID [facility] Stop: 07/11/17 09:01 Last Admin: 07/11/17 08:57 Dose: Not Given - Exam General: Alert, Oriented, Cooperative, No Acute Distress HEENT: Pupils Equal, Pupils Reactive, EOMI, Mucous Membr. Moist/[place] Neck: Supple, Trachea Midline, No JVD Lungs: Clear to Auscultation, Normal Respiratory Effort Cardiovascular: Regular Rate, Regular Rhythm GI/Abdominal Exam: Normal Bowel Sounds, Soft, Non-Tender, No Organomegaly, No Distention, No Abnormal Bruit, No Mass, Pelvis Stable (Female) Exam: Deferred Back Exam: Normal Inspection, Full Range of Motion Extremities: Normal Inspection, Normal Range of Motion, Non-Tender, No Pedal Edema, Normal Capillary Refill Peripheral Pulses: 2+: Posterior Tibial (L), Posterior Tibial (R), 3+: Radial (L ), Radial (R), Dorsalis Pedis (L), Dorsalis Pedis (R) Skin: Warm, Dry, Intact, Other (scattered bruising to feet) Neurological: No New Focal Deficit Psy/Mental Status: Alert, Normal Affect, Normal Mood - Problem List & Annotations (1) Diabetic ketoacidosis SNOMED Code(s): 142818358 Code(s): E13.10 - OTH DIABETES MELLITUS WITH KETOACIDOSIS WITHOUT COMA Status: Acute Current Visit: Yes QualifierTitle: Diabetes mellitus type: type 1 Diabetes mellitus complication detail: without coma Qualified Code(s): E10.10 - Type 1 diabetes mellitus with ketoacidosis without coma (2) Acute renal failure SNOMED Code(s): 19771488 Code(s): N17.9 - ACUTE KIDNEY FAILURE, UNSPECIFIED Status: Resolved Priority: High Current Visit: Yes QualifierTitle: Acute renal failure type: unspecified Qualified Code(s): N17.9 - Acute kidney failure, unspecified (3) Diabetes mellitus type 1 SNOMED Code(s): 25910219 Code(s): E10.9 - TYPE 1 DIABETES MELLITUS WITHOUT COMPLICATIONS Status: Chronic Priority: High Current Visit: Yes QualifierTitle: Diabetes mellitus complication status: with neurologic complications Diabetes mellitus complication detail: with unspecified neuropathy Qualified Code(s): E10.40 - Type 1 diabetes mellitus with diabetic neuropathy, unspecified (4) Hyperglycemia SNOMED Code(s): 69942644 Code(s): R73.9 - HYPERGLYCEMIA, UNSPECIFIED Status: Acute Priority: High Current Visit: Yes (5) Hyperlipidemia due to type 1 diabetes mellitus SNOMED Code(s): 133072126130766 Code(s): E10.69 - TYPE 1 DIABETES MELLITUS WITH OTHER SPECIFIED COMPLICATION ; E78.5 - HYPERLIPIDEMIA, UNSPECIFIED Status: Chronic Priority: Low Current Visit: No (6) Leukocytosis, unspecified SNOMED Code(s): 098767917 Code(s): D72.829 - ELEVATED WHITE BLOOD CELL COUNT, UNSPECIFIED Status: Acute Priority: Medium Current Visit: Yes QualifierTitle: Leukocytosis type: unspecified Qualified Code(s): D72.829 - Elevated white blood cell count, unspecified (7) Tobacco dependence SNOMED Code(s): 57106416 Code(s): F17.200 - NICOTINE DEPENDENCE, UNSPECIFIED, UNCOMPLICATED Status: Chronic Priority: Medium Current Visit: Yes - Problem List Review Problem List Initiated/Reviewed/Updated: Yes - Plan Plan:: Impression: DM type 1 with DKA Query infectious process Leukocytosis, unspecified Hyperlipidemia Tobacco dependence Plan: Infectious-->resp work up, all negative Droplet isolation, check Influenza PCR -->negative, discontinue 2 liters wide open/ heated fluids/[place]ug[place] --> completed DKA protocol--> discontinue insulin drip, Sliding scale insulin, ADA diet Antiemetic as needed, added scopolamine patch Habitrol scheduled -> patient refused Educate on importance of smoking cessation DM educator Consult dietary for wgt loss Consult PT/OT/CM DVT/GI prophylaxis Likely discharge tomorrow <Debby Lang - Last Filed: 07/11/17 17:21> - Patient Data Vitals - Most Recent: Last Vital Signs Temp 36.5 C 07/11/17 12:00 Pulse 89 07/11/17 16:00 Resp 14 07/11/17 16:00 BP 133/70 07/11/17 16:00 Pulse Ox 99 07/11/17 16:00 I&O - Last 24 Hours: Intake & Output 07/11/17 07/11/17 07/11/17 06:59 14:59 22:59 Intake Total 683 700 4707 Output Total 1600 Balance -7617 336 0940 Lab Results Last 24 Hours: Laboratory Results - last 24 hr 07/10/17 07/10/17 07/10/17 Range/Units 18:01 20:02 22:02 Sodium (136-145) mEq/L Potassium (3.5-5.1) mEq/L Chloride (98-107) mEq/L Carbon Dioxide (21-32) mEq/L Anion Gap (5-15) BUN (7-18) mg/dL Creatinine (0.55-1.02) mg/dL Est Cr Clr Drug Dosing mL/min Estimated GFR (MDRD) (>60) mL/min BUN/Creatinine Ratio (14-18) Glucose (74-106) mg/dL POC Glucose 208 H 218 H 201 H (70-105) mg/dL Lactic Acid (0.4-2.0) mmol/L Calcium (8.5-10.1) mg/dL Magnesium (1.8-2.4) mg/dl C-Reactive Protein (<1.0) mg/dL 07/11/17 07/11/17 07/11/17 Range/Units 05:12 05:12 06:23 Sodium 142 (136-145) mEq/L Potassium 4.0 (3.5-5.1) mEq/L Chloride 110 H (98-107) mEq/L Carbon Dioxide 20 L (21-32) mEq/L Anion Gap 16.0 H (5-15) BUN 6 L (7-18) mg/dL Creatinine 0.7 (0.55-1.02) mg/dL Est Cr Clr Drug Dosing 94.54 mL/min Estimated GFR (MDRD) > 60 (>60) mL/min BUN/Creatinine Ratio 8.6 L (14-18) Glucose 240 H (74-106) mg/dL POC Glucose 264 H (70-105) mg/dL Lactic Acid 0.8 (0.4-2.0) mmol/L Calcium 8.5 (8.5-10.1) mg/dL Magnesium 2.1 (1.8-2.4) mg/dl C-Reactive Protein 1.1 H* (<1.0) mg/dL 07/11/17 07/11/17 Range/Units 11:24 16:41 Sodium (136-145) mEq/L Potassium (3.5-5.1) mEq/L Chloride (98-107) mEq/L Carbon Dioxide (21-32) mEq/L Anion Gap (5-15) BUN (7-18) mg/dL Creatinine (0.55-1.02) mg/dL Est Cr Clr Drug Dosing mL/min Estimated GFR (MDRD) (>60) mL/min BUN/Creatinine Ratio (14-18) Glucose (74-106) mg/dL POC Glucose 267 H 273 H (70-105) mg/dL Lactic Acid (0.4-2.0) mmol/L Calcium (8.5-10.1) mg/dL Magnesium (1.8-2.4) mg/dl C-Reactive Protein (<1.0) mg/dL [facility] Results Last 24 Hours: Microbiology 07/09/17 02:10 Quick Strep Confirmation Culture - Final Throat NEGATIVE FOR BETA STREP Group A Streptococcus Rapid Screen - Final NEGATIVE STREP A SCREEN Med Orders - Current: Current Medications Acetaminophen (Tylenol) 650 mg PO Q6H PRN PRN Reason: Pain/Fever Last Admin: 07/09/17 17:47 Dose: 650 mg Famotidine (Pepcid) 20 mg PO BID RAMIRO Hydralazine HCl (Apresoline) 20 mg IVPUSH Q6H PRN PRN Reason: Hypertension Potassium Chloride 10 meq/ (Premix) 100 mls @ 100 mls/hr IV ASDIRECTED [facility] Last Infusion: 07/10/17 11:58 Dose: 75 mls/hr Insulin Human Regular 100 unit (/ Sodium Chloride) 100 mls @ 2.5 mls/hr IV TITRATE RAMIRO; 2.5 UNIT/HR PRN Reason: Protocol Last Titration: 07/10/17 18:09 Dose: 0 unit/hr, 0 mls/hr Insulin Aspart (Novolog) 0 unit SUBCUT QIDACANDBED RAMIRO PRN Reason: Protocol Last Admin: 07/11/17 16:42 Dose: 9 units Lisinopril (Prinivil) 10 mg PO QAM [facility]IRO Ondansetron HCl (Zofran) 4 mg IVPUSH Q8H PRN PRN Reason: Nausea/Vomiting Last Admin: 07/09/17 05:39 Dose: 4 mg Scopolamine (Scopolamine) 1 each TRDERM Q72H [facility]IR[facility] Last Admin: 07/09/17 11:21 Dose: 1 each Simvastatin (Zocor) 20 mg PO QAM RAMIRO Sodium Chloride (Saline Flush) 10 ml FLUSH ASDIRECTED PRN PRN Reason: Keep Vein Open Last Admin: 07/08/17 16:12 Dose: 10 ml Sodium Chloride (Saline Flush) 10 ml FLUSH ASDIRECTED PRN PRN Reason: Keep Vein Open Last Admin: 07/08/17 16:13 Dose: 10 ml Discontinued Medications Ceftriaxone Sodium (Rocephin) Confirm Administered Dose 2 gm .ROUTE .STK-MED ONE Stop: 07/10/17 21:58 Last Admin: 07/10/17 22:07 Dose: Not Given Famotidine (Pepcid) 20 mg IVPUSH BID [facility] Last Admin: 07/11/17 08:57 Dose: 20 mg Sodium Chloride (Normal Saline) 1,000 mls @ 999 mls/hr IV ONETIME ONE Stop: 07/08/17 16:30 Last Admin: 07/08/17 15:40 Dose: 999 mls/hr Sodium Chloride (Normal Saline) 1,000 mls @ 999 mls/hr IV ONETIME ONE Stop: 07/08/17 16:36 Last Admin: 07/08/17 16:12 Dose: 999 mls/hr Sodium Chloride (Normal Saline) 1,000 mls @ 999 mls/hr IV ONETIME ONE Stop: 07/08/17 17:07 Last Admin: 07/08/17 16:12 Dose: 999 mls/hr Insulin Human Regular 100 unit (/ Sodium Chloride) 100 mls @ 3 mls/hr IV TITRATE RAMIRO; 3 UNIT/HR PRN Reason: Protocol Last Admin: 07/08/17 17:25 Dose: 3 unit/hr, 3 mls/hr Sodium Chloride (Normal Saline) 1,000 mls @ 999 mls/hr IV ONETIME ONE Stop: 07/08/17 17:59 Last Admin: 07/08/17 17:04 Dose: 999 mls/hr Potassium Chloride (Kcl 10 Meq In Water 100 Ml) Confirm Administered Dose 100 mls @ as directed .ROUTE .STK-MED ONE Stop: 07/08/17 17:16 Last Admin: 07/08/17 17:28 Dose: Not Given Sodium Chloride (Normal Saline) 1,000 mls @ 999 mls/hr IV ONETIME ONE Stop: 07/08/17 19:14 Last Admin: 07/08/17 18:17 Dose: 999 mls/hr Sodium Chloride (Normal Saline) 1,000 mls @ 999 mls/hr IV Q1H [facility] Stop: 07/08/17 21:44 Last Admin: 07/08/17 20:25 Dose: 999 mls/hr Azithromycin 500 mg/ Sodium (Chloride) 250 mls @ 250 mls/hr IV Q24H [facility] Last Admin: 07/10/17 18:14 Dose: 250 mls/hr Ceftriaxone Sodium 2 gm/ (Sodium Chloride) 100 mls @ 200 mls/hr IV Q24H [facility] Last Admin: 07/08/17 23:07 Dose: Not Given Insulin Human Regular 100 unit (/ Sodium Chloride) 100 mls @ 217.31 mls/hr IV TITRATE RAMIRO; 3 UNITS/KG/HR PRN Reason: Protocol Last Admin: 07/08/17 20:53 Dose: 3 units/kg/hr, 217.31 mls/hr Ceftriaxone Sodium 1 gm/ (Sodium Chloride) 100 mls @ 200 mls/hr IV Q24H [facility] Last Admin: 07/09/17 22:23 Dose: 200 mls/hr Ceftriaxone Sodium 1 gm/ (Sodium Chloride) 100 mls @ 200 mls/hr IV Q24H [facility] Last Admin: 07/09/17 22:50 Dose: 200 mls/hr Dextrose/Sodium Chloride (Dextrose 5%-Normal Saline) 1,000 mls @ 150 mls/hr IV ASDIRECTED [facility] Last Admin: 07/09/17 06:26 Dose: 150 mls/hr Dextrose/Water (Dextrose 5% In Water) Confirm Administered Dose 1,000 mls @ as directed .ROUTE .[facility] ONE Stop: 07/08/17 23:07 Last Admin: 07/08/17 23:30 Dose: Not Given Dextrose/Sodium Chloride (Dextrose 5%-1/2 Ns) 1,000 mls @ 150 mls/hr IV ASDIRECTED [facility] Last Admin: 07/09/17 13:21 Dose: 150 mls/hr Potassium Chloride 20 meq/ (Dextrose/Water) 1,010 mls @ 150 mls/hr IV ASDIRECTED [facility] Potassium Chloride 20 meq/ (Dextrose/Water) 1,010 mls @ 150 mls/hr IV Q7H [facility] Last Admin: 07/11/17 06:25 Dose: Not Given Sodium Chloride (Normal Saline) Confirm Administered Dose 100 mls @ as directed .ROUTE .[facility] ONE Stop: 07/09/17 18:53 Last Admin: 07/09/17 19:41 Dose: Not Given Ceftriaxone Sodium 2 gm/ (Sodium Chloride) 100 mls @ 200 mls/hr IV Q24H [facility] Last Admin: 07/11/17 00:52 Dose: Not Given Potassium Chloride 10 meq/ (Premix) 100 mls @ 100 mls/hr IV Q1H [facility] Stop: 07/10/17 15:14 Last Admin: 07/10/17 15:49 Dose: 75 mls/hr Magnesium Sulfate 2 gm/ Premix 50 mls @ 25 mls/hr IV ONETIME ONE Stop: 07/10/17 13:11 Last Admin: 07/10/17 11:54 Dose: 25 mls/hr Ceftriaxone Sodium 1 gm/ (Sodium Chloride) 100 mls @ 200 mls/hr IV Q24H [facility] Last Admin: 07/10/17 22:22 Dose: 200 mls/hr Ceftriaxone Sodium 1 gm/ (Sodium Chloride) 100 mls @ 200 mls/hr IV Q24H [facility] Last Admin: 07/10/17 22:56 Dose: 200 mls/hr Ceftriaxone Sodium 2 gm/ (Sodium Chloride) 100 mls @ 200 mls/hr IV Q24H [facility] Ceftriaxone Sodium 2 gm/ (Sodium Chloride) 100 mls @ 200 mls/hr IV Q24H [facility] Ceftriaxone Sodium 2 gm/ (Sodium Chloride) 100 mls @ 200 mls/hr IV Q24H [facility] Ondansetron HCl (Zofran) 4 mg IVPUSH ONETIME ONE Stop: 07/08/17 15:39 Last Admin: 07/08/17 16:13 Dose: 4 mg Potassium Chloride (Klor-Con M20) 40 meq PO BID [facility] Stop: 07/11/17 09:01 Last Admin: 07/11/17 08:57 Dose: Not Given - Problem List & Annotations (1) Tobacco dependence SNOMED Code(s): 04598806 Code(s): F17.200 - NICOTINE DEPENDENCE, UNSPECIFIED, UNCOMPLICATED Status: Chronic Priority: Medium Current Visit: Yes (2) Hyperlipidemia due to type 1 diabetes mellitus SNOMED Code(s): 269698946157635 Code(s): E10.69 - TYPE 1 DIABETES MELLITUS WITH OTHER SPECIFIED COMPLICATION ; E78.5 - HYPERLIPIDEMIA, UNSPECIFIED Status: Chronic Priority: Low Current Visit: No (3) Acute renal failure SNOMED Code(s): 41838904 Code(s): N17.9 - ACUTE KIDNEY FAILURE, UNSPECIFIED Status: Resolved Priority: High Current Visit: Yes Qualifiers: Acute renal failure type: unspecified Qualified Code(s): N17.9 - Acute kidney failure, unspecified (4) Leukocytosis, unspecified SNOMED Code(s): 894138275 Code(s): D72.829 - ELEVATED WHITE BLOOD CELL COUNT, UNSPECIFIED Status: Acute Priority: Medium Current Visit: Yes Qualifiers: Leukocytosis type: unspecified Qualified Code(s): D72.829 - Elevated white blood cell count, unspecified (5) Diabetic ketoacidosis SNOMED Code(s): 422776425 Code(s): E13.10 - OTH DIABETES MELLITUS WITH KETOACIDOSIS WITHOUT COMA Status: Acute Current Visit: Yes Qualifiers: Diabetes mellitus type: type 1 Diabetes mellitus complication detail: without coma Qualified Code(s): E10.10 - Type 1 diabetes mellitus with ketoacidosis without coma - My Orders Last 24 Hours: My Active Orders 07/10/17 17:30 Communication Order [RC] ASDIRECTED 07/10/17 18:00 Insulin Aspart [NovoLOG] See Protocol SUBCUT QIDACANDBED 07/10/17 18:17 Consult to Fisheries Specialist [Consult to Diabetic Nurse Specialist] [CONS] Routine 07/11/17 10:55 Famotidine [Pepcid] 20 mg PO BID 07/11/17 15:09 Patient Status [ADT] Routine 07/11/17 Lunch [employer] Diet [DIET] - Plan Plan:: Start home meds with sliding scale; completed DM education, will be provided a box of Novolog pens.
[2017-07-11] MEDS ORDERED: KOMBIGLYZE PO SCH (18:00)
[2017-07-11] MEDS: Insulin Detemir 100 Units/ML 3 ML Pen SUBCUT SCH (21:10)
[2017-07-11] MEDS: Famotidine 20 MG Tab PO SCH (21:12)
[2017-07-12] MEDS ORDERED: Insulin Aspart 100 Units/ML 3 ML Pen SUBCUT SCH
[2017-07-12] MEDS: Insulin Aspart 100 Units/ML 3 ML Pen SUBCUT SCH (06:38)
[2017-07-12] MEDS ORDERED: Simvastatin 20 MG Tab PO SCH (08:00)
[2017-07-12] MEDS ORDERED: Lisinopril 10 MG Tab PO SCH (08:00)
[2017-07-12] MEDS: Famotidine 20 MG Tab PO SCH (08:42)
[2017-07-12] MEDS: Insulin Detemir 100 Units/ML 3 ML Pen SUBCUT SCH (08:47)
[2017-07-12] MEDS ORDERED: FARXIGA 10 MG PO SCH (09:00)
[2017-07-12] MEDS ORDERED: Nicotine 14 MG/24 Hr Patch TRDERM SCH (09:00)
[2017-07-12] MEDS ORDERED: Aspirin 81 MG Tab.EC PO SCH (09:00)
--- NOTE | 2017-07-12 09:47 | PCM.DCSUM1 ---
Discharge Summary - Hospital Course Free Text/Narrative:: 51-year-old female arrives via [facility] service for evaluation and treatment of hyperglycemia. Patient is visiting [place] from [place]. She was in DKA and April in [place]. Reportedly she has been taking her medications as prescribed. She started new diet about 5 days ago, she is on a "ketotic" diet. States that this is the only recent change. She does not note any fevers, cough etc. She is currently complaining of abdominal pain in epigastric area, nausea and vomiting. She is also complaining of being dry feeling dehydrated. She had 10 units of regular insulin around 11 AM. Per her significant other's report her blood sugar was around 396. EMS report shows a blood sugar of 430. Patient has been a diabetic for the last 15 years. primary care provider is in [place]. Hospitalist service is consulted for admission to ICU for DKA; she was given 6L of fluid in ED and started on insulin drip in ED - Discharge Data Discharge Date: 07/12/17 (admit date 07/08/17) Discharge Disposition: Home, Self-Care 01 Condition: Good - Discharge Diagnosis/Problem(s) (1) Diabetic ketoacidosis SNOMED Code(s): 781232635 ICD Code: E13.10 - OTH DIABETES MELLITUS WITH KETOACIDOSIS WITHOUT COMA Status: Resolved Priority: High Current Visit: Yes Qualifiers: Diabetes mellitus type: type 1 Diabetes mellitus complication detail: without coma Qualified Code(s): E10.10 - Type 1 diabetes mellitus with ketoacidosis without coma (2) Leukocytosis, unspecified SNOMED Code(s): 145844657 ICD Code: D72.829 - ELEVATED WHITE BLOOD CELL COUNT, UNSPECIFIED Status: Resolved Priority: Medium Current Visit: Yes Qualifiers: Leukocytosis type: unspecified Qualified Code(s): D72.829 - Elevated white blood cell count, unspecified (3) Diabetes mellitus type 1 SNOMED Code(s): 68247179 ICD Code: E10.9 - TYPE 1 DIABETES MELLITUS WITHOUT COMPLICATIONS Status: Chronic Priority: High Current Visit: Yes Qualifiers: Diabetes mellitus complication status: with neurologic complications Diabetes mellitus complication detail: with unspecified neuropathy Qualified Code(s): E10.40 - Type 1 diabetes mellitus with diabetic neuropathy, unspecified (4) Tobacco dependence SNOMED Code(s): 71423177 ICD Code: F17.200 - NICOTINE DEPENDENCE, UNSPECIFIED, UNCOMPLICATED Status : Chronic Priority: Medium Current Visit: Yes (5) Acute renal failure SNOMED Code(s): 18954485 ICD Code: N17.9 - ACUTE KIDNEY FAILURE, UNSPECIFIED Status: Resolved Priority: High Current Visit: Yes Qualifiers: Acute renal failure type: unspecified Qualified Code(s): N17.9 - Acute kidney failure, unspecified (6) Hyperlipidemia due to type 1 diabetes mellitus SNOMED Code(s): 164098688628406 ICD Code: E10.69 - TYPE 1 DIABETES MELLITUS WITH OTHER SPECIFIED COMPLICATION ; E78.5 - HYPERLIPIDEMIA, UNSPECIFIED Status: Chronic Priority: Low Current Visit: No - Patient Summary/Data Operative Procedure(s) Performed: None Complications: None Consults: Consultations 07/10/17 18:17 Consult to Armament Aircraft Mechanic [Consult to Diabetic Nurse Specialist] [CONS] Routine Labs Pending at D/C: None Recommended Follow-up Testing/Procedures: Patient DC instructions: You may call Zeina Hemphill at [phone] to inquire about your hospital bill estimate. You may call [phone] for the patient advocate for further information about possibly qualifying for [facility] and about other insurance. Follow up with PCP within one week of discharge; appointment with [facility] on the same day. Blood sugar checks before meals and at bedtime with sliding scale insulin per chart/protocol. Push fluids Stop smoking Diabetic diet Exercise 30 minutes most days of the week - target total is 150minutes/week of exercise. Planned Operative Procedure(s) after DC: None Hospital Course: Impression: DM type 1 with DKA Query infectious process--negative Leukocytosis, unspecified--resolved with IVF Hyperlipidemia Tobacco dependence Plan: Infectious-->resp work up, all negative Droplet isolation, check Influenza PCR -->negative, discontinue 2 liters wide open/ heated fluids/Barehugger --> completed DKA protocol--> discontinue insulin drip, Sliding scale insulin, ADA diet Antiemetic as needed, added scopolamine patch Habitrol scheduled -> patient refused --- DC'd with nicotine patch; Educate on importance of smoking cessation DM educator--will Fup with CDE as outpatient Consult dietary for wgt loss Consult PT/OT/CM DVT/GI prophylaxis DC home today; usual home meds and SSI. - Patient Instructions Diet: Heart Healthy Diet, Drink 8-10+ Glasses/Day, Diabetic Diet Activity: As Tolerated Driving: May Drive Today Showering/Bathing: May Shower Notify Provider of: Fever, Increased Pain, Nausea and/or Vomiting - Discharge Plan Prescriptions/Med Rec: Insulin Aspart [NovoLOG] 0 unit SUBCUT QIDACANDBED #1 pen Nicotine [Nicotine Patch] 1 each TD DAILY #30 patch.td24 Home Medications: Home Meds Dapagliflozin Propanediol [Farxiga] 10 mg PO DAILY 07/08/17 [History] Insulin Aspart [NovoLOG] 0 unit SQ WITHMEALSANDBED 07/08/17 [History] Insulin Glargine,Hum.Rec.Anlog [Toujeo Solostar] 30 unit SQ DAILY 07/08/17 [ History] Lisinopril 10 mg PO DAILY 07/08/17 [History] atorvaSTATin [Lipitor] 20 mg PO DAILY 07/08/17 [History] Aspirin [Adult Low Dose Aspirin EC] 81 mg PO DAILY 07/11/17 [History] Saxagliptin HCl/Metformin HCl [Kombiglyze XR 5-500 MG] 1 tab PO QPM 07/11/17 [ History] Insulin Aspart [NovoLOG] 0 unit SUBCUT QIDACANDBED #1 pen 07/12/17 [Rx] Nicotine [Nicotine Patch] 1 each TD DAILY #30 patch.td24 07/12/17 [Rx] Patient Handouts: Insulin Storage and Care, Tips for Eating Away From Home If You Have Diabetes, Diabetes and Sick Day Management, Diabetic Ketoacidosis, How to Avoid Diabetes Problems, Steps to Quit Smoking Forms: ED Department Discharge Referrals: Yina Salmeron MD [Physician] - (Please make a appointment to establish care and for hosptial folow-up. [facility]. Call [phone] to schedule.) PCP,Not In Area [Primary Care Provider] - Iliana Fernandez, RN [Registered Nurse] - (Please make an appointment for personal development educator follow-up. [facility]. Call [phone] to schedule.) - Discharge Summary/Plan Comment DC Time >30 min.: Yes (45 min) - General Info Date of Service: 07/12/17 Admission Dx/Problem (Free Text: diabetic ketoacidosis Doing well, sugars under better control, eating without n/v. Plans DC home today. Functional Status: Reports: Pain Controlled, Tolerating Diet, Ambulating, Urinating. Denies: New Symptoms - Review of Systems General: Reports: No Symptoms HEENT: Reports: No Symptoms Pulmonary: Reports: No Symptoms Cardiovascular: Reports: No Symptoms Gastrointestinal: Reports: No Symptoms. Denies: Diarrhea, Nausea, Vomiting Genitourinary: Reports: No Symptoms Musculoskeletal: Reports: No Symptoms Neurological: Reports: No Symptoms - Patient Data Vitals - Most Recent: Last Vital Signs Temp 97.0 F 07/12/17 09:00 Pulse 92 07/12/17 09:00 Resp 16 07/12/17 09:00 BP 119/71 07/12/17 09:00 Pulse Ox 98 07/12/17 09:00 Weight - Most Recent: 160 lb 11.2 oz I&O - Last 24 hours: Intake & Output 07/11/17 07/12/17 07/12/17 22:59 06:59 14:59 Intake Total 1520 500 Balance 1520 500 Lab Results - Last 24 hrs: Laboratory Results - last 24 hr 07/11/17 07/11/17 07/11/17 Range/Units 11:24 16:41 21:05 WBC (3.98-10.04) K/mm3 RBC (3.98-5.22) M/mm3 Hgb (11.2-15.7) gm/L Hct (34.1-44.9) % MCV (79.4-94.8) fl MCH (25.6-32.2) pg MCHC (32.2-35.5) g/dl RDW Std Deviation (36.4-46.3) fL Plt Count (182-369) K/mm3 MPV (9.4-12.3) fl Neut % (Auto) (34.0-71.1) % Lymph % (Auto) (19.3-51.7) % [place] % (Auto) (4.7-12.5) % Eos % (Auto) (0.7-5.8) Baso % (Auto) (0.1-1.2) % Neut # (Auto) (1.56-6.13) K/mm3 Lymph # (Auto) (1.18-3.74) K/mm3 [place] # (Auto) (0.24-0.36) K/mm3 Eos # (Auto) (0.04-0.36) K/mm3 Baso # (Auto) (0.01-0.08) K/mm3 Sodium (136-145) mEq/L Potassium (3.5-5.1) mEq/L Chloride (98-107) mEq/L Carbon Dioxide (21-32) mEq/L Anion Gap (5-15) BUN (7-18) mg/dL Creatinine (0.55-1.02) mg/dL Est Cr Clr Drug Dosing mL/min Estimated GFR (MDRD) (>60) mL/min BUN/Creatinine Ratio (14-18) Glucose (74-106) mg/dL POC Glucose 267 H 273 H 202 H (70-105) mg/dL Calcium (8.5-10.1) mg/dL Magnesium (1.8-2.4) mg/dl 07/12/17 07/12/17 07/12/17 Range/Units 05:00 05:00 06:34 WBC 5.14 (3.98-10.04) K/mm3 RBC 3.72 L (3.98-5.22) M/mm3 Hgb 10.8 L (11.2-15.7) gm/L Hct 32.8 L (34.1-44.9) % MCV 88.2 (79.4-94.8) fl MCH 29.0 (25.6-32.2) pg MCHC 32.9 (32.2-35.5) g/dl RDW Std Deviation 43.6 (36.4-46.3) fL Plt Count 217 (182-369) K/mm3 MPV 9.0 L (9.4-12.3) fl Neut % (Auto) 55.5 (34.0-71.1) % Lymph % (Auto) 32.7 (19.3-51.7) % [place] % (Auto) 5.4 (4.7-12.5) % Eos % (Auto) 6.0 H (0.7-5.8) Baso % (Auto) 0.4 (0.1-1.2) % Neut # (Auto) 2.85 (1.56-6.13) K/mm3 Lymph # (Auto) 1.68 (1.18-3.74) K/mm3 [place] # (Auto) 0.28 (0.24-0.36) K/mm3 Eos # (Auto) 0.31 (0.04-0.36) K/mm3 Baso # (Auto) 0.02 (0.01-0.08) K/mm3 Sodium 148 H (136-145) mEq/L Potassium 3.5 (3.5-5.1) mEq/L Chloride 110 H (98-107) mEq/L Carbon Dioxide 28 (21-32) mEq/L Anion Gap 13.5 (5-15) BUN 9 (7-18) mg/dL Creatinine 0.7 (0.55-1.02) mg/dL Est Cr Clr Drug Dosing 94.54 mL/min Estimated GFR (MDRD) > 60 (>60) mL/min BUN/Creatinine Ratio 12.9 L (14-18) Glucose 84 (74-106) mg/dL POC Glucose 94 (70-105) mg/dL Calcium 8.8 (8.5-10.1) mg/dL Magnesium 2.0 (1.8-2.4) mg/dl 07/12/17 Range/Units 08:45 WBC (3.98-10.04) K/mm3 RBC (3.98-5.22) M/mm3 Hgb (11.2-15.7) gm/L Hct (34.1-44.9) % MCV (79.4-94.8) fl MCH (25.6-32.2) pg MCHC (32.2-35.5) g/dl RDW Std Deviation (36.4-46.3) fL Plt Count (182-369) K/mm3 MPV (9.4-12.3) fl Neut % (Auto) (34.0-71.1) % Lymph % (Auto) (19.3-51.7) % [place] % (Auto) (4.7-12.5) % Eos % (Auto) (0.7-5.8) Baso % (Auto) (0.1-1.2) % Neut # (Auto) (1.56-6.13) K/mm3 Lymph # (Auto) (1.18-3.74) K/mm3 [place] # (Auto) (0.24-0.36) K/mm3 Eos # (Auto) (0.04-0.36) K/mm3 Baso # (Auto) (0.01-0.08) K/mm3 Sodium (136-145) mEq/L Potassium (3.5-5.1) mEq/L Chloride (98-107) mEq/L Carbon Dioxide (21-32) mEq/L Anion Gap (5-15) BUN (7-18) mg/dL Creatinine (0.55-1.02) mg/dL Est Cr Clr Drug Dosing mL/min Estimated GFR (MDRD) (>60) mL/min BUN/Creatinine Ratio (14-18) Glucose (74-106) mg/dL POC Glucose 196 H (70-105) mg/dL Calcium (8.5-10.1) mg/dL Magnesium (1.8-2.4) mg/dl [facility] Results - Last 24 hrs: Microbiology 07/08/17 22:27 Streptococcus pneumoniae Antigen (M - Final Urine 07/09/17 02:10 Influenza Types A & B (PCR) - Final Nasal, Right 07/09/17 02:10 Quick Strep Confirmation Culture - Final Throat NEGATIVE FOR BETA STREP Group A Streptococcus Rapid Screen - Final NEGATIVE STREP A SCREEN Med Orders - Current: Current Medications Acetaminophen (Tylenol) 650 mg PO Q6H PRN PRN Reason: Pain/Fever Last Admin: 07/09/17 17:47 Dose: 650 mg Aspirin (Halfprin) 81 mg PO DAILY RAMIRO Last Admin: 07/12/17 08:38 Dose: 81 mg Famotidine (Pepcid) 20 mg PO BID RAMIRO Last Admin: 07/12/17 08:42 Dose: 20 mg Hydralazine HCl (Apresoline) 20 mg IVPUSH Q6H PRN PRN Reason: Hypertension Potassium Chloride 10 meq/ (Premix) 100 mls @ 100 mls/hr IV ASDIRECTED RAMIRO Last Infusion: 07/10/17 11:58 Dose: 75 mls/hr Insulin Human Regular 100 unit (/ Sodium Chloride) 100 mls @ 2.5 mls/hr IV TITRATE RAMIRO; 2.5 UNIT/HR PRN Reason: Protocol Last Titration: 07/10/17 18:09 Dose: 0 unit/hr, 0 mls/hr Insulin Aspart (Novolog) 0 unit SUBCUT QIDACANDBED [facility] PRN Reason: Protocol Last Admin: 07/12/17 06:38 Dose: Not Given Insulin Aspart (Novolog) 0 unit SUBCUT TIDAC Stop: 08/09/17 23:59 Insulin Detemir (Levemir) 15 unit SUBCUT BID [facility] Last Admin: 07/12/17 08:47 Dose: 15 unit Lisinopril (Prinivil) 10 mg PO QAM [facility] Last Admin: 07/12/17 08:39 Dose: 10 mg Miscellaneous Information (Remove Patch) 1 ea TRDERM DAILY [facility] Last Admin: 07/12/17 08:44 Dose: Not Given Nicotine (Habitrol) 14 mg TRDERM DAILY [facility] Last Admin: 07/12/17 08:43 Dose: Not Given Farxiga 10 Mg Own (Med) 0 mg PO DAILY [facility] Last Admin: 07/12/17 08:42 Dose: 1 mg Kombiglyze 5-500 Xr (Own Med) 0 each PO QPM [facility] Last Admin: 07/11/17 18:45 Dose: 1 each Ondansetron HCl (Zofran) 4 mg IVPUSH Q8H PRN PRN Reason: Nausea/Vomiting Last Admin: 07/09/17 05:39 Dose: 4 mg Scopolamine (Scopolamine) 1 each TRDERM Q72H [facility] Last Admin: 07/09/17 11:21 Dose: 1 each Simvastatin (Zocor) 20 mg PO QAM [facility] Last Admin: 07/12/17 08:39 Dose: 20 mg Sodium Chloride (Saline Flush) 10 ml FLUSH ASDIRECTED PRN PRN Reason: Keep Vein Open Last Admin: 07/08/17 16:12 Dose: 10 ml Sodium Chloride (Saline Flush) 10 ml FLUSH ASDIRECTED PRN PRN Reason: Keep Vein Open Last Admin: 07/08/17 16:13 Dose: 10 ml Discontinued Medications Ceftriaxone Sodium (Rocephin) Confirm Administered Dose 2 gm .ROUTE .STK-MED ONE Stop: 07/10/17 21:58 Last Admin: 07/10/17 22:07 Dose: Not Given Famotidine (Pepcid) 20 mg IVPUSH BID [facility] Last Admin: 07/11/17 08:57 Dose: 20 mg Sodium Chloride (Normal Saline) 1,000 mls @ 999 mls/hr IV ONETIME ONE Stop: 07/08/17 16:30 Last Admin: 07/08/17 15:40 Dose: 999 mls/hr Sodium Chloride (Normal Saline) 1,000 mls @ 999 mls/hr IV ONETIME ONE Stop: 07/08/17 16:36 Last Admin: 07/08/17 16:12 Dose: 999 mls/hr Sodium Chloride (Normal Saline) 1,000 mls @ 999 mls/hr IV ONETIME ONE Stop: 07/08/17 17:07 Last Admin: 07/08/17 16:12 Dose: 999 mls/hr Insulin Human Regular 100 unit (/ Sodium Chloride) 100 mls @ 3 mls/hr IV TITRATE RAMIRO; 3 UNIT/HR PRN Reason: Protocol Last Admin: 07/08/17 17:25 Dose: 3 unit/hr, 3 mls/hr Sodium Chloride (Normal Saline) 1,000 mls @ 999 mls/hr IV ONETIME ONE Stop: 07/08/17 17:59 Last Admin: 07/08/17 17:04 Dose: 999 mls/hr Potassium Chloride (Kcl 10 Meq In Water 100 Ml) Confirm Administered Dose 100 mls @ as directed .ROUTE .STK-MED ONE Stop: 07/08/17 17:16 Last Admin: 07/08/17 17:28 Dose: Not Given Sodium Chloride (Normal Saline) 1,000 mls @ 999 mls/hr IV ONETIME ONE Stop: 07/08/17 19:14 Last Admin: 07/08/17 18:17 Dose: 999 mls/hr Sodium Chloride (Normal Saline) 1,000 mls @ 999 mls/hr IV Q1H RAMIRO Stop: 07/08/17 21:44 Last Admin: 07/08/17 20:25 Dose: 999 mls/hr Azithromycin 500 mg/ Sodium (Chloride) 250 mls @ 250 mls/hr IV Q24H [facility] Last Admin: 07/10/17 18:14 Dose: 250 mls/hr Ceftriaxone Sodium 2 gm/ (Sodium Chloride) 100 mls @ 200 mls/hr IV Q24H [facility] Last Admin: 07/08/17 23:07 Dose: Not Given Insulin Human Regular 100 unit (/ Sodium Chloride) 100 mls @ 217.31 mls/hr IV TITRATE RAMIRO; 3 UNITS/KG/HR PRN Reason: Protocol Last Admin: 07/08/17 20:53 Dose: 3 units/kg/hr, 217.31 mls/hr Ceftriaxone Sodium 1 gm/ (Sodium Chloride) 100 mls @ 200 mls/hr IV Q24H [facility] Last Admin: 07/09/17 22:23 Dose: 200 mls/hr Ceftriaxone Sodium 1 gm/ (Sodium Chloride) 100 mls @ 200 mls/hr IV Q24H [facility] Last Admin: 07/09/17 22:50 Dose: 200 mls/hr Dextrose/Sodium Chloride (Dextrose 5%-Normal Saline) 1,000 mls @ 150 mls/hr IV ASDIRECTED [facility] Last Admin: 07/09/17 06:26 Dose: 150 mls/hr Dextrose/Water (Dextrose 5% In Water) Confirm Administered Dose 1,000 mls @ as directed .ROUTE .[facility] ONE Stop: 07/08/17 23:07 Last Admin: 07/08/17 23:30 Dose: Not Given Dextrose/Sodium Chloride (Dextrose 5%-1/2 Ns) 1,000 mls @ 150 mls/hr IV ASDIRECTED [facility] Last Admin: 07/09/17 13:21 Dose: 150 mls/hr Potassium Chloride 20 meq/ (Dextrose/Water) 1,010 mls @ 150 mls/hr IV ASDIRECTED RAMIRO Potassium Chloride 20 meq/ (Dextrose/Water) 1,010 mls @ 150 mls/hr IV Q7H [facility] Last Admin: 07/11/17 06:25 Dose: Not Given Sodium Chloride (Normal Saline) Confirm Administered Dose 100 mls @ as directed .ROUTE .[facility] ONE Stop: 07/09/17 18:53 Last Admin: 07/09/17 19:41 Dose: Not Given Ceftriaxone Sodium 2 gm/ (Sodium Chloride) 100 mls @ 200 mls/hr IV Q24H [facility] Last Admin: 07/11/17 00:52 Dose: Not Given Potassium Chloride 10 meq/ (Premix) 100 mls @ 100 mls/hr IV Q1H [facility] Stop: 07/10/17 15:14 Last Admin: 07/10/17 15:49 Dose: 75 mls/hr Magnesium Sulfate 2 gm/ Premix 50 mls @ 25 mls/hr IV ONETIME ONE Stop: 07/10/17 13:11 Last Admin: 07/10/17 11:54 Dose: 25 mls/hr Ceftriaxone Sodium 1 gm/ (Sodium Chloride) 100 mls @ 200 mls/hr IV Q24H [facility] Last Admin: 07/10/17 22:22 Dose: 200 mls/hr Ceftriaxone Sodium 1 gm/ (Sodium Chloride) 100 mls @ 200 mls/hr IV Q24H [facility] Last Admin: 07/10/17 22:56 Dose: 200 mls/hr Ceftriaxone Sodium 2 gm/ (Sodium Chloride) 100 mls @ 200 mls/hr IV Q24H [facility]IRO Ceftriaxone Sodium 2 gm/ (Sodium Chloride) 100 mls @ 200 mls/hr IV Q24H [facility]IRO Ceftriaxone Sodium 2 gm/ (Sodium Chloride) 100 mls @ 200 mls/hr IV Q24H [facility] Non-Formulary Medication (Saxagliptin Hcl/Metformin Hcl [Kombiglyze Xr 5-500 Mg] ) 1 tab PO QPM [facility] Ondansetron HCl (Zofran) 4 mg IVPUSH ONETIME ONE Stop: 07/08/17 15:39 Last Admin: 07/08/17 16:13 Dose: 4 mg Potassium Chloride (Klor-Con M20) 40 meq PO BID [facility] Stop: 07/11/17 09:01 Last Admin: 07/11/17 08:57 Dose: Not Given - Exam Quality Assessment: Reports: DVT Prophylaxis General: Reports: Alert, Oriented, Cooperative, No Acute Distress HEENT: Reports: Pupils Equal, EOMI, Mucous Membr. Moist/[place] Neck: Reports: Supple Lungs: Reports: Clear to Auscultation, Normal Respiratory Effort, Decreased Breath Sounds (bases) Cardiovascular: Reports: Regular Rate, Regular Rhythm GI/Abdominal Exam: Normal Bowel Sounds, Soft, Non-Tender (Female) Exam: Deferred Rectal (Female) Exam: Deferred Back Exam: Reports: Normal Inspection Extremities: No Pedal Edema, Normal Capillary Refill Neurological: Reports: No New Focal Deficit Psy/Mental Status: Reports: Alert, Normal Affect, Normal Mood *Q Meaningful Use (DIS) - VTE *Q VTE Criteria *Q: - Stroke *Q Stroke Criteria *Q: - AMI *Q AMI Criteria *Q:
== END 2017-07-12 12:20 | disposition home or self-care (01) | DRG 638 ==
LOC: JD.ED 15:21 → JD.ICU 18:12
PROVIDERS: ADMIT Internal Medicine Cardiovascular Disease; ATTEND Internal Medicine Cardiovascular Disease
DX: E10.10 Type 1 diabetes mellitus with ketoacidosis without coma (principal); N17.9 Acute kidney failure, unspecified; E10.40 Type 1 diabetes mellitus with diabetic neuropathy, unspecified; E10.69 Type 1 diabetes mellitus with other specified complication; D72.829 Elevated white blood cell count, unspecified; F17.210 Nicotine dependence, cigarettes, uncomplicated; Z79.4 Long term (current) use of insulin; Z79.84 Long term (current) use of oral hypoglycemic drugs; Z79.899 Other long term (current) drug therapy
CPT/HCPCS: 36415; 36600; 71045; 71045-26; 71046; 71046-26; 80048; 80053; 80061; 80306; 81001; 82009; 82803; 82962; 83036; 83605; 83690; 83735; 83930; 84100; 85025; 86140; 86738; 87040; 87081; 87430; 87502; 87503; 87804; 87899; 96361; 96365; 96368; 96375; 99223; 99231; 99232; 99239; 99285; 99285-25; A9270-GY; J0456; J0696; J1815; J1815-GY; J2405; J3475; J3480; J7030; J7040; J7042; J7050; J7060